=== PATIENT | male | born 1950 | race Two or more races ===

== ENCOUNTER 2021-12-27 15:11 | Inpatient (IN) | payer OTHER ==
[~2021-12-27] VITALS: Ht 160 cm; Wt 66.7 kg
[2021-12-27] MEDS ORDERED: ROSU10TA29 PO (17:02)
[2021-12-27] MEDS ORDERED: AMLO-213 PO (17:02)
[2021-12-27] MEDS ORDERED: ERGO500093 PO (17:02)
[2021-12-27 17:10] VITALS: BP 160/67
--- NOTE | 2021-12-27 17:10 | NUR ---
SAWMILL SUPERVISOR NOTES RECEIVED PT FROM [facility] [DIRECT ADMIT], DX SEPSIS PNEUMONIA, SPEAKS CROATIAN, AAO X 3, ON 4L O2 NASAL CANULA, NO SOB, RESPIRATION UNLABORED, ELEVATED TEMP 100.3, COOLING MEASURES IN PLACE, SR HR 75 ON MONITOR, DENIES CHEST PAIN/DISCOMFORT, IV ACCESS ON RIGHT FA 20G, FLUSHES WELL, SITE CLEAR, COMPLAIN OF 10/10 RUQ PAIN, WILL ADMINISTER PAIN MEDICATION, MAY HAVE ICE CHIPS FOR NOW, NO SKIN ISSUES, UNIT ORIENTATION DONE AND USE OF CALL LIGHT PROVIDED, BED LOW LOCKED, SR UP X 2, INSTRUCTED TO CALL FOR ASSISTANCE, WILL MONITOR. NOTIFIED DR. SHARLA FUNK FOR ADMIT ORDERS. WILL CARRY OUT
--- NOTE | 2021-12-27 17:42 | NUR ---
RN NOTES DR. MAGDALENO NOTIFIED OF DIRECT ADMIT FROM [facility], NEEDS ADMIT ORDERS. AND HE SAID OK
[2021-12-27] MEDS ORDERED: HYDROCODONE/APAP 10/325MG TABLET PO PRN (18:30)
[2021-12-27] MEDS ORDERED: MORPHINE SULFATE INJ 2 MG/ML DISP.SYRIN IV PRN (18:30)
[2021-12-27] MEDS ORDERED: HYDROCODONE/APAP 5/325MG TABLET PO PRN (18:30)
[2021-12-27] MEDS ORDERED: Z GUARD REMEDY 4 OZ OINT TP PRN (18:30)
[2021-12-27] MEDS ORDERED: ZOLPIDEM TARTRATE 5 MG TABLET PO PRN (18:30)
[2021-12-27] MEDS ORDERED: MAG HYDROX/AL HYDROX/SIMETH 30 ML UDC PO PRN (18:30)
[2021-12-27] MEDS ORDERED: ONDANSETRON HCL/PF 4 MG/2 ML VIAL IVP PRN (18:30)
[2021-12-27] MEDS ORDERED: MAGNESIUM HYDROXIDE 30 ML UDC PO PRN (18:30)
[2021-12-27] MEDS: IV 1/2NS 1000 ML 1,000 ML IV PRN (18:36)
--- NOTE | 2021-12-27 19:09 | NUR ---
RN NOTES ALL NEEDS MET AT THIS TIME. STABLE ENDORSED TO NEXT SHIFT FOR JEROD
[2021-12-27 19:14] LABS: CALCIUM, SERUM 7.9 mg/dL (8.5-10.1); POTASSIUM 3.9 mmol/L (3.5-5.1)
--- NOTE | 2021-12-27 19:15 | NUR ---
CLOSING NOTES ENDORSED TO EMELY PINEDA FOR JEROD. ALL NEEDS MET AT THIS TIME.
[2021-12-27] MEDS: CEFTRIAXONE 1 G in IV D5W 50 ML IV SCH (19:47)
[2021-12-27 19:52] LABS: BASOPHILS % (AUTO) 0.2 % (0.0-2.0); EOSINOPHILS % (AUTO) 0.3 % (0.0-6.0); HEMATOCRIT 35 % (39-51); HEMOGLOBIN 10.9 g/dL (13.5-17.5); LYMPHOCYTES # (AUTO) 1.1 K/uL (0.8-4.8); MEAN CORPUSCULAR HGB CONC 31 g/dl (31.0-36.0); MEAN CORPUSCULAR VOLUME 80 fL (80-96); MONOCYTES # (AUTO) 1.2 K/uL (0.1-1.30); MONOCYTES % (AUTO) 8.5 % (2.0-12.0); NEUTROPHILS # (AUTO) 11.4 K/uL (1.8-8.9); PLATELET COUNT (AUTO) 181 K/uL (150-450); RED BLOOD CELL COUNT(AUTO) 4.38 MIL/uL (4.5-6.0); WHITE BLOOD COUNT (AUTO) 13.7 K/uL (4.3-11.0)
[2021-12-27 20:00] VITALS: BP 164/76
[2021-12-27] MEDS: AZITHROMYCIN 500 MG in IV D5W 250 ML IV SCH (20:21)
[2021-12-27] MEDS: ENOXAPARIN SODIUM 30 MG/0.3 ML DISP.SYRIN SQ SCH (21:06)
[2021-12-27] MEDS: ACETAMINOPHEN 325 MG TABLET PO PRN (21:07)
--- NOTE | 2021-12-27 21:18 | NUR ---
MID LEVEL DEVELOPER NOTE PT IN RUNNING FEVER OF 101.2. CALL MD OWEN RECEIVED NEW ORDER OF BLOOD CX X2 STAT. LAB INFORMED. DRAWING BLOOD. AFTER THEM TYLENOL 650 MG PO GIVEN. ALSO BODY COOLING MEASURES APPLIED.
[2021-12-27] MEDS: ATORVASTATIN 10 MG TABLET PO SCH (21:20)
--- NOTE | 2021-12-27 22:18 | NUR ---
MILANESE KNITTING MACHINE OPERATOR NOTE FEVER SUBSIDE TO 99.7
[2021-12-28] VITALS (9 sets, daily range): BP systolic 104–164; BP diastolic 61–116
[2021-12-28] MEDS: ACETAMINOPHEN 325 MG TABLET PO PRN ×3 (03:44→18:11)
--- NOTE | 2021-12-28 03:45 | NUR ---
MOTOR HOTEL MANAGER NOTE PT IS RUNNING LOW GRADE FEVER 100.2, TYLENOL 650 MG PO GIVEN. CONTINUE TO MONITOR HIM.
--- NOTE | 2021-12-28 04:45 | NUR ---
MARKETING SALES MANAGER NOTE FEVER SUBSIDED TO 98.6.
--- NOTE | 2021-12-28 06:32 | NUR ---
DIRECTOR OF CAMPUS RECREATION NOTE PT IN BED AWAKE. NO DISTRESS OR DISCOMFORT NOTED. DENIES PAIN. ON TELE SR. ON IVF 1/ NS 75 ML/HR, NO S/S OF INFILTRATION NOTED. KEPT HIM DRY AND CLEAN. ALL NEEDS ATTENDED. WILL ENDORSE TO DAY SHIFT NURSE FOR CONTINUE TO CARE.
[2021-12-28 06:41] LABS: BASOPHILS % (AUTO) 0.1 % (0.0-2.0); EOSINOPHILS % (AUTO) 0.5 % (0.0-6.0); HEMATOCRIT 36 % (39-51); HEMOGLOBIN 11.2 g/dL (13.5-17.5); LYMPHOCYTES # (AUTO) 1.8 K/uL (0.8-4.8); LYMPHOCYTES % (AUTO) 12.2 % (20.0-44.0); MEAN CORPUSCULAR HGB CONC 32 g/dl (31.0-36.0); MEAN CORPUSCULAR VOLUME 80 fL (80-96); MONOCYTES # (AUTO) 1.4 K/uL (0.1-1.30); MONOCYTES % (AUTO) 9.6 % (2.0-12.0); NEUTROPHILS # (AUTO) 11.3 K/uL (1.8-8.9); NEUTROPHILS % (AUTO) 77.6 % (43.0-81.0); PLATELET COUNT (AUTO) 181 K/uL (150-450); RED BLOOD CELL COUNT(AUTO) 4.48 MIL/uL (4.5-6.0); WHITE BLOOD COUNT (AUTO) 14.5 K/uL (4.3-11.0)
[2021-12-28 06:57] LABS: CALCIUM, SERUM 7.9 mg/dL (8.5-10.1); CREATININE 0.9 mg/dL (0.6-1.3); MAGNESIUM 2.1 mg/dL (1.8-2.4); PHOSPHORUS 2.3 mg/dL (2.5-4.9); POTASSIUM 3.7 mmol/L (3.5-5.1)
[2021-12-28 07:10] LABS: THYROID STIMULATING HORMONE 0.551 uIU/mL (0.358-3.74)
--- NOTE | 2021-12-28 07:30 | NUR ---
PSYCHIATRIC SECRETARY AM NOTES RECEIVED PT IN BED, SPEAKS IRAQI, AAO X 3, ON 4L O2 NASAL CANULA, NO SOB, RESPIRATION UNLABORED, O2 AT 92%, PER GEAR STRAIGHTENER, WITH ELEVATED TEMP 100.3, COOLING MEASURES IN PLACE AND TYLENOL GIVEN, SR HR 77 ON MONITOR, DENIES CHEST PAIN/DISCOMFORT, IV ACCESS ON RIGHT FA 20G WITH 1/2 NS AT 75 ML INFUSING WELL, SITE CLEAR, CARDIAC DIET, NO SKIN ISSUES, CALL LIGHT WITHIN REACH, BED LOW LOCKED, SR UP X 2, INSTRUCTED TO CALL FOR ASSISTANCE, POC DISCUSSED, VERBALIZED UNDERSTANDINGS. WILL MONITOR.
[2021-12-28] MEDS: PANTOPRAZOLE 40 MG TABLET.DR PO SCH (07:54)
[2021-12-28] MEDS: AMLODIPINE BESYLATE 10 MG TABLET PO SCH (08:47)
[2021-12-28] MEDS: IV 1/2NS 1000 ML 1,000 ML IV PRN (08:49)
--- NOTE | 2021-12-28 09:30 | NUR ---
RN NOTES DUE MEDS GIVEN
[2021-12-28] MEDS ORDERED: K PHOS NEUTRAL 250 MG TABLET PO ONE (10:00)
--- NOTE | 2021-12-28 12:28 | NUR ---
RN NOTES PT C/O SOB, O2 SAT AT 85%, WHEEZING,PLACED ON NRM 15L - SATURATION WENT UP TO 97% BP 172/71, TEMP [address] LUJAN NEW ORDER FOR ABG AND BREATHING TREATMENT
[2021-12-28] MEDS: ALBUTEROL FS 2.5 MG/0.5 ML VIAL.NEB NEB PRN (12:48)
[2021-12-28] MEDS: hydrALAZINE HCL 10 MG TABLET PO PRN (12:48)
[2021-12-28] MEDS: IPRATROPIUM NEB FS 0.5 MG/2.5 ML AMPUL.NEB NEB PRN (12:48)
[2021-12-28] MEDS ORDERED: ALBUTEROL HALF STRENGTH 1.25 MG/3 ML VIAL.NEB NEB PRN (13:00)
[2021-12-28 13:04] LABS: ABG BASE EXCESS -1.9 mmol/L; ABG OXYGEN SATURATION 91.3 % (92.0-98.5); ABG PCO2 31.3 mmHg (35.0-45.0); ABG PH 7.449 (7.350-7.450); ABG PO2 58.9 mmHg (75.0-100.0); AaDO2 190.3 mmHg; COHb 0.8 % (0.5-1.5); MetHb 0.2 % (0.0-1.5); O2Hb 90.4 % (94.0-97.0); SITE, ABG Right Radial; VENT MODE, BG NASAL CANNULA
--- NOTE | 2021-12-28 13:10 | NUR ---
PT. IS AWAKE AND ALERT PLACED INTO SIMPLE MASK @ 10 LPM O2 FLOW DUE TO 93% SPO2 AND 59 PAO2 IN 5 L NASAL CANNULA. RN AWARE Addendum: 12/28/21 at 1311 by TOSHA STEEN RT Amended: Links added.
--- NOTE | 2021-12-28 13:38 | NUR ---
RN NOTES BP RE CHECKED 137/52. TEMP AT 100.2. DR. LUJAN AWARE.
--- NOTE | 2021-12-28 17:47 | NUR ---
RN NOTES PATIENT ON SIMPLE MASK 10L WITH O2 SAT 92% NOT IMPROVING PATIENT PLACED ON HIGH FLOW 80% O2 SAT 99%
--- NOTE | 2021-12-28 17:51 | NUR ---
pt. is awake and alert placed into high flow nasal cannula @ 50L flow / 80% fio2 due to 92% spo2 on 10 liter simple mask. charge nurse and notified. spo2 98 - 99% 5 minutes post changed Addendum: 12/28/21 at 1758 by TOSHA STEEN RT Amended: Links added.
[2021-12-28] MEDS: CEFTRIAXONE 1 G in IV D5W 50 ML IV SCH (18:11)
--- NOTE | 2021-12-28 18:23 | NUR ---
PT ARRIVED IN ICU ROOM 257 AT 1823. PT ALERT OX3 COOPERATIVE. HIGH FLOW NASAL CANNULA 50L 85%, NO SOB NOTED AT THIS TIME. PT STATES HE IS SOB WITH ACTIVITY. BEDSIDE REPORT RECEIVED FROM ALVARADO PINEDA.
--- NOTE | 2021-12-28 18:30 | NUR ---
RN NOTES DR. PORTILLO LUJAN AT BEDSIDE EARLIER, WITH PRDER TO TRANSFER TO ICU. PATIENT TRANSFERRED TO 257 WITH ALL HIS BELONGINGS, BEDSIDE REPORT GIVEN TO JACLYN PINEDA
--- NOTE | 2021-12-28 19:20 | NUR ---
RN NOTES PT FOUND SEMI FOWLERS DISPLAYING NO S/S OF DISTRESS, PT ENDORSES NO PAIN AND IS BREATHING EVEN AND UNLABORED ON HIGH FLOW NASAL CANNULA 50L 85%. PT DENIES SOB. R AC 20G IS PATIENT AND INTACT. SBAR AND REPORT GIVEN TO WINCH DERRICK OPERATOR RN, ALL QUESTIONS ANSWERED. SAFETY MEASURES IN PLACE, BED LOCKED AND IN LOWEST POSITION, SIDE RAILS UPX2, CALL LIGHT WITHIN REACH, PT INSTRUCTED TO CALL FOR ASSISTANCE. PT ENDORSED IN STABLE CONDITION FOR JEROD.
[2021-12-28] MEDS: AZITHROMYCIN 500 MG in IV D5W 250 ML IV SCH (20:00)
[2021-12-28] MEDS: ATORVASTATIN 10 MG TABLET PO SCH (21:44)
[2021-12-28] MEDS: ENOXAPARIN SODIUM 30 MG/0.3 ML DISP.SYRIN SQ SCH (21:45)
[2021-12-29] VITALS (25 sets, daily range): BP systolic 124–168; BP diastolic 41–137
[2021-12-29 04:04] LABS: BASOPHILS % (AUTO) 0.2 % (0.0-2.0); EOSINOPHILS % (AUTO) 0.1 % (0.0-6.0); HEMATOCRIT 37 % (39-51); HEMOGLOBIN 11.8 g/dL (13.5-17.5); LYMPHOCYTES # (AUTO) 1.2 K/uL (0.8-4.8); LYMPHOCYTES % (AUTO) 5.6 % (20.0-44.0); MEAN CORPUSCULAR HGB CONC 32 g/dl (31.0-36.0); MEAN CORPUSCULAR VOLUME 79 fL (80-96); MONOCYTES # (AUTO) 1.7 K/uL (0.1-1.30); MONOCYTES % (AUTO) 7.8 % (2.0-12.0); NEUTROPHILS # (AUTO) 18.4 K/uL (1.8-8.9); NEUTROPHILS % (AUTO) 86.3 % (43.0-81.0); PLATELET COUNT (AUTO) 206 K/uL (150-450); RED BLOOD CELL COUNT(AUTO) 4.71 MIL/uL (4.5-6.0); WHITE BLOOD COUNT (AUTO) 21.3 K/uL (4.3-11.0)
[2021-12-29 04:10] LABS: CALCIUM, SERUM 8.5 mg/dL (8.5-10.1); CREATININE 0.9 mg/dL (0.6-1.3); POTASSIUM 3.9 mmol/L (3.5-5.1)
--- NOTE | 2021-12-29 05:38 | NUR ---
end of shift resp note pt found at about 2000 restless and pulling on hfnc, complaining that it was to strong in his nose. pt remains on high flow nasal canula 40l 95% fio2. settings adjusted at start of shift for pt comfort hr spo2 and rr stable at this time. Addendum: 12/29/21 at 0540 by PEPE LANIER RT Amended: Links added.
[2021-12-29] MEDS: PANTOPRAZOLE 40 MG TABLET.DR PO SCH (07:21)
--- NOTE | 2021-12-29 07:37 | NUR ---
RN OPENING NOTES RECEIVED PT IN BED A/O X 3-4, WELSH SPEAKING, ON HI FLOW O2 AT 40 FIO2 95%. TELE MONITOR SHOWS SR. IV ACCESS NOTED AT R AC 18G. RUNNING NS @ TKO. ALL SAFETY MEASURES IN PLACE, BED IN LOWEST LOCKED POSITION,SR UP X 3, CALL LIGHT WITHIN REACH. WILL CONT. TO MONITOR THROUGHOUT SHIFT.
[2021-12-29] MEDS: AMLODIPINE BESYLATE 10 MG TABLET PO SCH (08:35)
[2021-12-29] MEDS ORDERED: VANCOMYCIN HCL 0.75 GM in IV D5W 250 ML IV ONE (14:00)
[2021-12-29] MEDS ORDERED: VANCOMYCIN 1 GM in IV D5W 250ml IV ONE (14:00)
--- NOTE | 2021-12-29 18:54 | NUR ---
RN CLOSING NOTE PT IS RESTING IN BED A/O X 3, ALPHONSO AND GEORGIAN SPEAKING. PT ON HIGH FLOW AT 40 AND FIO2 AT 60%. SATING AT 91%. IV ACCESS NOTED AT R AC 18G. RUNNING NS TKO. ALL SAFETY MEASURES IN PLACE, WILL ENDORSE TO OFFICE MOVER RN FOR JEROD.
[2021-12-29] MEDS: IPRATROPIUM NEB FS 0.5 MG/2.5 ML AMPUL.NEB NEB PRN (19:38)
[2021-12-29] MEDS: ALBUTEROL FS 2.5 MG/0.5 ML VIAL.NEB NEB PRN (19:38)
--- NOTE | 2021-12-29 21:05 | NUR ---
BATTERY STARTER. RECEIVED THE PT REST IN BED. PT IS TACHYPNIC AND WHEEZING.BREATHING TREATMENT GIVEN. CHEST CT DONE. WAITING FOR RESULT. OXYGEN 60L HIGH FLOW 55%. SAT 92%, WILL CONTINUE TO MONITOR VITALS.
--- NOTE | 2021-12-29 21:18 | NUR ---
PT ON HFNC 60L 55% NO RESP DISTRESS. PT TOLERATING SETTINGS. CONTINUE TO MONITOR.
[2021-12-29] MEDS: ATORVASTATIN 10 MG TABLET PO SCH (21:53)
[2021-12-29] MEDS: MEROPENEM 1 G in IV NS 0.9% 100 ML IV SCH (21:53)
[2021-12-29] MEDS: AZITHROMYCIN 500 MG in IV D5W 250 ML IV SCH (21:53)
[2021-12-29] MEDS: VANCOMYCIN 1 GM in IV D5W 250ml IV SCH (21:53)
[2021-12-29] MEDS: ENOXAPARIN SODIUM 30 MG/0.3 ML DISP.SYRIN SQ SCH (21:55)
[2021-12-30] VITALS (30 sets, daily range): BP systolic 120–175; BP diastolic 52–93
[2021-12-30 04:18] LABS: BASOPHILS # (AUTO) 0.1 K/uL (0.0-0.2); BASOPHILS % (AUTO) 0.3 % (0.0-2.0); EOSINOPHILS % (AUTO) 0.3 % (0.0-6.0); HEMATOCRIT 35 % (39-51); HEMOGLOBIN 10.9 g/dL (13.5-17.5); LYMPHOCYTES # (AUTO) 2.2 K/uL (0.8-4.8); LYMPHOCYTES % (AUTO) 11.6 % (20.0-44.0); MEAN CORPUSCULAR HGB CONC 31 g/dl (31.0-36.0); MEAN CORPUSCULAR VOLUME 78 fL (80-96); MONOCYTES # (AUTO) 1.9 K/uL (0.1-1.30); MONOCYTES % (AUTO) 10.2 % (2.0-12.0); NEUTROPHILS # (AUTO) 14.5 K/uL (1.8-8.9); NEUTROPHILS % (AUTO) 77.6 % (43.0-81.0); PLATELET COUNT (AUTO) 225 K/uL (150-450); RED BLOOD CELL COUNT(AUTO) 4.41 MIL/uL (4.5-6.0); WHITE BLOOD COUNT (AUTO) 18.7 K/uL (4.3-11.0)
[2021-12-30 04:22] LABS: CALCIUM, SERUM 8.1 mg/dL (8.5-10.1); POTASSIUM 3.4 mmol/L (3.5-5.1)
--- NOTE | 2021-12-30 05:21 | NUR ---
agriculture mechanic. am care given. remaining same oxygen on. hob elevated. iv rt hand 20g. tko running. hob elevated, will continue to monitor vitals.
[2021-12-30] MEDS: ACETAMINOPHEN 325 MG TABLET PO PRN ×2 (06:06→16:43)
[2021-12-30] MEDS: MEROPENEM 1 G in IV NS 0.9% 100 ML IV SCH ×3 (06:06→21:51)
[2021-12-30] MEDS ORDERED: POTASSIUM CHLORIDE 20 MEQ TAB.PRT.SR PO ONE (08:00)
--- NOTE | 2021-12-30 08:00 | NUR ---
RN NOTE PATIENT RECEIVED IN BED, AWAKE, A&OX4. PATIENT ON HFNC WITH 60L 60% FIO2 O2 SAT 92% ON BEDSIDE MONITOR. RIGHT AC 18G ANF LEFT HAND 20G SL IN PLACE. BED LOCKED AND IN LOWEST POSITION, CALL LIGHT WITHIN REACH, 2 SIDE RAILS UP.
[2021-12-30] MEDS: PANTOPRAZOLE 40 MG TABLET.DR PO SCH (08:25)
[2021-12-30] MEDS: AMLODIPINE BESYLATE 10 MG TABLET PO SCH (08:25)
[2021-12-30] MEDS: VANCOMYCIN 1 GM in IV D5W 250ml IV SCH ×2 (08:26→20:22)
[2021-12-30 08:49] LABS: ALBUMIN 2.4 g/dL (3.4-5.0); BILIRUBIN,DIRECT 0.4 mg/dL (0.0-0.2); TOTAL PROTEIN, SERUM 7.4 g/dL (6.4-8.2)
[2021-12-30] MEDS: FLUCONAZOLE IN NS,PREMIX 400 MG in PREMIX 1 EA IV SCH ×2 (11:25)
--- NOTE | 2021-12-30 12:30 | NUR ---
RN NOTE HFNC INCREASED TO 80% FIO2, 60L BY RT.
[2021-12-30] MEDS: FLUCONAZOLE IN NS,PREMIX 200 MG in PREMIX 1 EA IV SCH ×2 (13:22)
[2021-12-30] MEDS: hydrALAZINE HCL 10 MG TABLET PO PRN (13:22)
--- NOTE | 2021-12-30 13:35 | NUR ---
RN NOTE BP 169/76. HYDRALAZINE 10MG PRN GIVEN.
--- NOTE | 2021-12-30 15:13 | NUR ---
RN NOTE BP REMAINS ELEVATED. PAIGE LUJAN NOTIFIED.
[2021-12-30 15:50] LABS: BILIRUBIN,URINE NEGATIVE (NEGATIVE); COLOR,URINE YELLOW (YELLOW); LEUKOCYTE ESTERASE ,URINE NEGATIVE (NEGATIVE); NITRITE, URINE NEGATIVE (NEGATIVE); PROTEIN,URINE 30 mg/dl (NEGATIVE); UGLUCOSE 250 MG/DL mg/dL (NEGATIVE)
[2021-12-30 15:59] LABS: RBC,URINE 0-2 /HPF (0-2); WBC,URINE NONE SEEN /HPF (0-3)
[2021-12-30 16:00] LABS: BACTERIA,URINE Few /HPF (None Seen); SQUAMOUS EPITHELIAL CELL,UR None Seen /HPF (None Seen)
[2021-12-30] MEDS: LISINOPRIL (20MG) 20 MG TABLET PO SCH (16:19)
--- NOTE | 2021-12-30 16:43 | NUR ---
rn notes T-100.7F, ADMINISTERED TYLENOL 750MG PO PRN, AND COOLING MEASURE. BP 174/77, P-106 ADMINISTERED LICINOPRIL PER HOSPITALIST ORDER,
--- NOTE | 2021-12-30 18:43 | NUR ---
RN CLOSING NOTE PATIENT REMAINS IN BED, AWAKE, A&OX4. PATIENT ON HFNC WITH 60L 80% FIO2 O2 SAT 95% ON BEDSIDE MONITOR. RIGHT AC 18G AND LEFT HAND 20G SL IN PLACE. ALL NEEDS ATTENDED DURING SHIFT. BP 133/63 AT THIS TIME. ALL NEEDS ATTENDED DURING SHIFT. BED LOCKED AND IN LOWEST POSITION, CALL LIGHT WITHIN REACH, 2 SIDE RAILS UP. WILL ENDORSE TO GROCERY STORE BAGGER NURSE FOR JEROD.
--- NOTE | 2021-12-30 19:15 | NUR ---
RN OPENING NOTES RECEIVED PATIENT ON BED AWAKE, A/O X 4, ON HI-FLOW @ 60L AND FIO2-80% SATING AT 94%. RESPIRATORY EVEN AND UNLABORED NO SOB NOTED, REMAIN AFEBRILE. DENIES PAIN, NO S/S OF DISTRESS NOTED. PATIENT HAS RAC # 18, FLUSHED WITH NS, NO S/S OF INFILTRATION NOTED AT SITE. SAFETY MEASURE PROVIDED. BED IN LOWEST POSITION, LOCKED. CONTINUE TO MONITOR.
[2021-12-30] MEDS: AZITHROMYCIN 500 MG in IV D5W 250 ML IV SCH (20:22)
[2021-12-30] MEDS: ATORVASTATIN 10 MG TABLET PO SCH (21:52)
[2021-12-31] VITALS (26 sets, daily range): BP systolic 128–178; BP diastolic 61–90
[2021-12-31] MEDS: hydrALAZINE HCL 10 MG TABLET PO PRN (00:27)
--- NOTE | 2021-12-31 00:30 | NUR ---
RN NOTES PATIENT NOTED WITH BP 177/79 PULSE- 91, HYDRALAZINE 10MG PO GIVEN PER MD'S ORDERED. DENIES HEADACHE AND DIZINNESS. CONTINUE TO MONITOR
[2021-12-31 04:20] LABS: BASOPHILS % (AUTO) 0.1 % (0.0-2.0); EOSINOPHILS % (AUTO) 0.3 % (0.0-6.0); HEMATOCRIT 34 % (39-51); HEMOGLOBIN 10.7 g/dL (13.5-17.5); LYMPHOCYTES # (AUTO) 1.1 K/uL (0.8-4.8); LYMPHOCYTES % (AUTO) 5.3 % (20.0-44.0); MEAN CORPUSCULAR HGB CONC 32 g/dl (31.0-36.0); MEAN CORPUSCULAR VOLUME 78 fL (80-96); MONOCYTES # (AUTO) 1.4 K/uL (0.1-1.30); MONOCYTES % (AUTO) 7.2 % (2.0-12.0); NEUTROPHILS # (AUTO) 17.3 K/uL (1.8-8.9); NEUTROPHILS % (AUTO) 87.1 % (43.0-81.0); PLATELET COUNT (AUTO) 265 K/uL (150-450); RED BLOOD CELL COUNT(AUTO) 4.31 MIL/uL (4.5-6.0); WHITE BLOOD COUNT (AUTO) 19.8 K/uL (4.3-11.0)
[2021-12-31] MEDS: ACETAMINOPHEN 325 MG TABLET PO PRN ×2 (04:25→15:15)
--- NOTE | 2021-12-31 04:25 | NUR ---
RN NOTES PATIENT NOTED WITH TEMP- 100.7 F DEGREES, COOLING MEASURE PROVIDED, ACETAMINOPHEN 650MG GIVEN PER MD'S ORDERED. CONTINUE TO MONITOR.
[2021-12-31 04:27] LABS: CALCIUM, SERUM 8.3 mg/dL (8.5-10.1); CREATININE 0.9 mg/dL (0.6-1.3); POTASSIUM 3.9 mmol/L (3.5-5.1)
[2021-12-31] MEDS: MEROPENEM 1 G in IV NS 0.9% 100 ML IV SCH ×3 (04:51→21:30)
--- NOTE | 2021-12-31 07:18 | NUR ---
RN NOTES PATIENT REMAIN STABLE THROUGH OUT THE SHIFT. RESPIRATORY EVEN AND UNLABORED NO SOB NOTED, REMAIN AFEBRILE. DENIES PAIN, NO S/S OF DISTRESS NOTED. PATIENT HAS RAC # 18 AND RIGHT HAND #20, FLUSHED WITH NS, NO S/S OF INFILTRATION NOTED AT SITE. ALL DUE MEDS GIVEN ORDERED. SAFETY MEASURE PROVIDED. BED IN LOWEST POSITION, LOCKED. REPORT GIVEN TO MORNING SHIFT NURSE.
--- NOTE | 2021-12-31 07:40 | NUR ---
ICU/RN PT IS RESTING IN THE BED. HAS SOB ,ON HI -FLOW O2 FIO2-60%,SAT O2-90%.AFEBRILE, NO PAIN REPORTED AT THIS TIME.PT IS AWAKE,ALERT.USE URINAL. LABS REVIEW.MD AWARE.CONTINUE MONITORING
--- NOTE | 2021-12-31 09:00 | NUR ---
ICU/RN DUE MEDS ARE GIVEN ORDERED.
[2021-12-31] MEDS: LISINOPRIL (20MG) 20 MG TABLET PO SCH (09:46)
[2021-12-31] MEDS: VANCOMYCIN 1 GM in IV D5W 250ml IV SCH ×2 (09:47→20:30)
[2021-12-31] MEDS: PANTOPRAZOLE 40 MG TABLET.DR PO SCH (09:47)
[2021-12-31] MEDS: AMLODIPINE BESYLATE 10 MG TABLET PO SCH (09:47)
[2021-12-31] MEDS: FLUCONAZOLE IN NS,PREMIX 200 MG in PREMIX 1 EA IV SCH ×2 (11:53)
[2021-12-31] MEDS: FLUCONAZOLE IN NS,PREMIX 400 MG in PREMIX 1 EA IV SCH ×2 (11:53)
--- NOTE | 2021-12-31 14:10 | NUR ---
ICU/RN THORACENTESIS DONE .310 ML REMOVED .CHEST X-RAY ORDERED.
--- NOTE | 2021-12-31 15:15 | NUR ---
ICU/RN T-101.6 TYLENOL PO GIVEN.
[2021-12-31] MEDS: GUAIFENESIN/CODEINE 10 ML UDC PO PRN ×2 (16:14→22:18)
--- NOTE | 2021-12-31 16:27 | NUR ---
ICU/RN PT IS COUGHING .ROBITUSSIN PO GIVEN ORDERED.T -99.3.PM CARE PROVIDED.CONTINUE MONITORING.
[2021-12-31] MEDS: AZITHROMYCIN 500 MG in IV D5W 250 ML IV SCH (19:30)
[2021-12-31] MEDS: ATORVASTATIN 10 MG TABLET PO SCH (22:18)
[2022-01-01] VITALS (27 sets, daily range): BP systolic 123–162; BP diastolic 49–82
[2022-01-01 04:34] LABS: BASOPHILS # (AUTO) 0.1 K/uL (0.0-0.2); BASOPHILS % (AUTO) 0.3 % (0.0-2.0); EOSINOPHILS % (AUTO) 0.9 % (0.0-6.0); HEMATOCRIT 31 % (39-51); HEMOGLOBIN 9.8 g/dL (13.5-17.5); LYMPHOCYTES # (AUTO) 1.1 K/uL (0.8-4.8); LYMPHOCYTES % (AUTO) 6.4 % (20.0-44.0); MEAN CORPUSCULAR HGB CONC 32 g/dl (31.0-36.0); MEAN CORPUSCULAR VOLUME 77 fL (80-96); MONOCYTES # (AUTO) 1.2 K/uL (0.1-1.30); MONOCYTES % (AUTO) 6.9 % (2.0-12.0); NEUTROPHILS # (AUTO) 14.9 K/uL (1.8-8.9); NEUTROPHILS % (AUTO) 85.5 % (43.0-81.0); PLATELET COUNT (AUTO) 262 K/uL (150-450); RED BLOOD CELL COUNT(AUTO) 3.95 MIL/uL (4.5-6.0); WHITE BLOOD COUNT (AUTO) 17.5 K/uL (4.3-11.0)
[2022-01-01 04:49] LABS: CALCIUM, SERUM 7.8 mg/dL (8.5-10.1); CREATININE 0.9 mg/dL (0.6-1.3); POTASSIUM 3.7 mmol/L (3.5-5.1)
[2022-01-01] MEDS: MEROPENEM 1 G in IV NS 0.9% 100 ML IV SCH ×3 (05:00→20:06)
[2022-01-01] MEDS: VANCOMYCIN 1 GM in IV D5W 250ml IV SCH ×3 (05:40→21:00)
--- NOTE | 2022-01-01 07:40 | NUR ---
ICU/RN PT IS RESTING ON THE BED HAS SOB ON HI-FLOW O2.80%-60L.SAT O2-02-95%.HAS PRODUCTIVE COUGH.AFEBRILE.NO PAIN REPORTED AT THIS TIME.LABS REVIEW.MD AWARE.CONTINUE MONITORING.
[2022-01-01] MEDS: PANTOPRAZOLE 40 MG TABLET.DR PO SCH (08:27)
[2022-01-01] MEDS: AMLODIPINE BESYLATE 10 MG TABLET PO SCH (08:30)
[2022-01-01] MEDS: LISINOPRIL (20MG) 20 MG TABLET PO SCH (08:31)
[2022-01-01] MEDS: FLUCONAZOLE IN NS,PREMIX 400 MG in PREMIX 1 EA IV SCH ×2 (10:21)
[2022-01-01] MEDS: GUAIFENESIN/CODEINE 10 ML UDC PO PRN ×2 (10:36→21:02)
[2022-01-01] MEDS: ENOXAPARIN SODIUM 40 MG/0.4 ML DISP.SYRIN SQ SCH (10:45)
[2022-01-01] MEDS: ACETAMINOPHEN 325 MG TABLET PO PRN ×2 (10:51→17:42)
--- NOTE | 2022-01-01 10:55 | NUR ---
ICU/RN PT HAS T-100.3 AND COUGH.TYLENOL 650 MG AND ROBITUSSIN PO GIVEN ORDERED.CONTINUE MONITORING.
[2022-01-01] MEDS: FLUCONAZOLE IN NS,PREMIX 200 MG in PREMIX 1 EA IV SCH ×2 (12:57)
--- NOTE | 2022-01-01 17:53 | NUR ---
ICU/RN PT HAS T-101.9 .TYLENOL PO GIVEN ORDERED .COOLING BATH PROVIDED.PT EATS 100% FROM HIS DINNER TRAY.CONTINUE MONITORING.
[2022-01-01] MEDS: ATORVASTATIN 10 MG TABLET PO SCH (21:02)
[2022-01-02] VITALS (29 sets, daily range): BP systolic 104–168; BP diastolic 41–90
[2022-01-02] MEDS: ACETAMINOPHEN 325 MG TABLET PO PRN (00:29)
[2022-01-02] MEDS: MEROPENEM 1 G in IV NS 0.9% 100 ML IV SCH ×3 (04:10→20:00)
[2022-01-02 04:51] LABS: BASOPHILS % (AUTO) 0.2 % (0.0-2.0); EOSINOPHILS % (AUTO) 2.1 % (0.0-6.0); HEMATOCRIT 32 % (39-51); HEMOGLOBIN 10.1 g/dL (13.5-17.5); LYMPHOCYTES # (AUTO) 2.6 K/uL (0.8-4.8); LYMPHOCYTES % (AUTO) 14.9 % (20.0-44.0); MEAN CORPUSCULAR HGB CONC 32 g/dl (31.0-36.0); MEAN CORPUSCULAR VOLUME 78 fL (80-96); MONOCYTES % (AUTO) 5.7 % (2.0-12.0); NEUTROPHILS # (AUTO) 13.6 K/uL (1.8-8.9); NEUTROPHILS % (AUTO) 77.1 % (43.0-81.0); PLATELET COUNT (AUTO) 306 K/uL (150-450); RED BLOOD CELL COUNT(AUTO) 4.08 MIL/uL (4.5-6.0); WHITE BLOOD COUNT (AUTO) 17.7 K/uL (4.3-11.0)
[2022-01-02] MEDS: VANCOMYCIN 1 GM in IV D5W 250ml IV SCH ×2 (05:01→13:09)
[2022-01-02 05:23] LABS: CALCIUM, SERUM 8.3 mg/dL (8.5-10.1); CREATININE 0.9 mg/dL (0.6-1.3); POTASSIUM 3.7 mmol/L (3.5-5.1)
--- NOTE | 2022-01-02 08:06 | NUR ---
RN OPENING NOTE PT WAS RECEIVED A/O X4 ON HIGH FLOW NASAL CANULA AT 60L AND 80% FIO2 SATING CURRENTLY AT 97 % WITH A RESPIRATORY RATE OF 20. LEFT UA MID LINE ON TKO. PATIENT RECEIVED BREAKFAST. THE BED IS LOCKED IN LOWEST POSITION CALL LIGHT WITHIN REACH 2X SIDE RAILS UP .
[2022-01-02] MEDS: PANTOPRAZOLE 40 MG TABLET.DR PO SCH (08:16)
[2022-01-02] MEDS: AMLODIPINE BESYLATE 10 MG TABLET PO SCH (08:16)
[2022-01-02] MEDS: LISINOPRIL (20MG) 20 MG TABLET PO SCH (08:17)
[2022-01-02] MEDS: ENOXAPARIN SODIUM 40 MG/0.4 ML DISP.SYRIN SQ SCH (08:17)
[2022-01-02] MEDS: FLUCONAZOLE IN NS,PREMIX 400 MG in PREMIX 1 EA IV SCH ×2 (11:12)
[2022-01-02] MEDS ORDERED: AMOXICILLIN TRIHYDRATE 250 MG CAPSULE PO SCH (13:00)
[2022-01-02] MEDS: hydrALAZINE HCL 10 MG TABLET PO PRN (13:09)
[2022-01-02] MEDS: FLUCONAZOLE IN NS,PREMIX 200 MG in PREMIX 1 EA IV SCH ×2 (14:24)
[2022-01-02] MEDS: VANCOMYCIN 1.25 GM in IV D5W 250 ML IV SCH (21:00)
[2022-01-02] MEDS: ATORVASTATIN 10 MG TABLET PO SCH (21:15)
[2022-01-03] VITALS (25 sets, daily range): BP systolic 127–160; BP diastolic 47–97
[2022-01-03] MEDS: ACETAMINOPHEN 325 MG TABLET PO PRN ×2 (00:07→14:13)
[2022-01-03] MEDS: MEROPENEM 1 G in IV NS 0.9% 100 ML IV SCH ×3 (04:30→21:16)
[2022-01-03 04:59] LABS: BASOPHILS # (AUTO) 0.1 K/uL (0.0-0.2); BASOPHILS % (AUTO) 0.5 % (0.0-2.0); HEMATOCRIT 30 % (39-51); HEMOGLOBIN 9.6 g/dL (13.5-17.5); LYMPHOCYTES # (AUTO) 1.8 K/uL (0.8-4.8); LYMPHOCYTES % (AUTO) 11.5 % (20.0-44.0); MEAN CORPUSCULAR HGB CONC 32 g/dl (31.0-36.0); MEAN CORPUSCULAR VOLUME 77 fL (80-96); MONOCYTES # (AUTO) 1.1 K/uL (0.1-1.30); NEUTROPHILS # (AUTO) 12.3 K/uL (1.8-8.9); PLATELET COUNT (AUTO) 309 K/uL (150-450); RED BLOOD CELL COUNT(AUTO) 3.87 MIL/uL (4.5-6.0); WHITE BLOOD COUNT (AUTO) 15.6 K/uL (4.3-11.0)
[2022-01-03] MEDS: VANCOMYCIN 1.25 GM in IV D5W 250 ML IV SCH (05:02)
[2022-01-03 05:11] LABS: CREATININE 0.9 mg/dL (0.6-1.3); POTASSIUM 3.8 mmol/L (3.5-5.1)
--- NOTE | 2022-01-03 07:30 | NUR ---
RN OPENING NOTE PT OBSERVED IN BED WITH HOB >30 DEGREES. PT IS ON HIGH FLOW NC WITH ALL PRESCRIBED SETTINGS TOLERATING WELL WITH NO SIGNS OF LABORED BREATHING OR DISTRESS SAT 96%. PT IS A/OX4. IV ACCESS L UA MIDLINE INFUSING WITH TKO. BED IS LOCKED IN LOWEST POSITION X2 BED RAILS UP AND ALL HOSPITAL SAFETY PROTOCOLS ARE IN PLACE. WILL CONTINUE TO MONITOR THIS SHIFT.
[2022-01-03] MEDS: PANTOPRAZOLE 40 MG TABLET.DR PO SCH (07:49)
[2022-01-03] MEDS: ENOXAPARIN SODIUM 40 MG/0.4 ML DISP.SYRIN SQ SCH (08:25)
[2022-01-03] MEDS: AMLODIPINE BESYLATE 10 MG TABLET PO SCH (08:25)
[2022-01-03] MEDS: LISINOPRIL (20MG) 20 MG TABLET PO SCH (08:25)
[2022-01-03] MEDS: FLUCONAZOLE IN NS,PREMIX 400 MG in PREMIX 1 EA IV SCH ×2 (10:35)
[2022-01-03] MEDS: FLUCONAZOLE IN NS,PREMIX 200 MG in PREMIX 1 EA IV SCH ×2 (14:00)
[2022-01-03] MEDS: AZITHROMYCIN 500 MG in IV D5W 250 ML IV SCH (16:01)
--- NOTE | 2022-01-03 18:50 | NUR ---
RN CLOSING NOTE PT OBSERVED IN BED WITH HOB >30 DEGREES. PT IS ON HIGH FLOW NC WITH ALL PRESCRIBED SETTINGS TOLERATING WELL WITH NO SIGNS OF LABORED BREATHING OR DISTRESS SAT 97%. PT IS A/OX4. IV ACCESS L UA MIDLINE INFUSING WITH TKO. BED IS LOCKED IN LOWEST POSITION X2 BED RAILS UP AND ALL HOSPITAL SAFETY PROTOCOLS ARE IN PLACE. WILL ENDORSE TO COMMERCIAL LOAN MANAGER FOR JEROD.
[2022-01-03] MEDS: ATORVASTATIN 10 MG TABLET PO SCH (21:17)
[2022-01-04] VITALS (31 sets, daily range): BP systolic 109–163; BP diastolic 60–104
[2022-01-04] MEDS: MEROPENEM 1 G in IV NS 0.9% 100 ML IV SCH ×2 (04:11→12:30)
--- NOTE | 2022-01-04 05:00 | NUR ---
end of shift resp note pt remains on high flow nasal canula 60l 70% hr and rr stable at this time. Addendum: 01/04/22 at 0623 by PEPE LANIER RT Amended: Links added.
--- NOTE | 2022-01-04 06:51 | NUR ---
ICU/RN: PT DISLODGED HIS MIDLINE. GARAGEMAN MADE AWARE TO NOTIFY MIDLINE TEAM. WILL ENDORSE TO AM SHIFT.
--- NOTE | 2022-01-04 07:10 | NUR ---
CATERING TRUCK DRIVER Bedside report taken from [facility] nurse Colby PINEDA. pt asleep, easily arousable, AAO x4, follows commands, moves bue and ble 5/5 ambulatory to bedside commode. PERRLA. pt on hi flow n/c tolerating well. spo2 95%. baldev lung sounds coarse and diminished. pt nsr on monitor. all pulses present and palpable. bowel sounds present, abdomen distended and rounded but soft. pt on cardiac diet. skin intact. no pressure wounds noted. vitals stable. safety measures in place. Pt has no IV access at this time, pt pulled out midline per noc nurse. Nursing bar supervisor aware that pt has no IV access, picc nurse contacted awaiting midline placement. Charge nurse Crispin PINEDA aware.
--- NOTE | 2022-01-04 08:05 | NUR ---
SENIOR RESEARCH CONSULTANT Pt sitting up in bed, feeding self breakfast tray. pt tolerating well. no visible signs of aspiration noted. vitals stable. will continue to monitor.
[2022-01-04] MEDS: AMLODIPINE BESYLATE 10 MG TABLET PO SCH (08:35)
[2022-01-04] MEDS: PANTOPRAZOLE 40 MG TABLET.DR PO SCH (08:35)
[2022-01-04] MEDS: LISINOPRIL (20MG) 20 MG TABLET PO SCH (08:36)
[2022-01-04] MEDS: ENOXAPARIN SODIUM 40 MG/0.4 ML DISP.SYRIN SQ SCH (08:37)
[2022-01-04 09:15] LABS: *ANA ANTI-CENTROMERE B AB <0.2 AI (0.0-0.9); *ANA ANTI-DNA(DS) AB, QN 4 IU/mL (0-9); *ANA ANTI-JO-1 <0.2 AI (0.0-0.9); *ANA ANTICHROMATIN ANTIBODY <0.2 AI (0.0-0.9); *ANA RNP ANTIBODIES <0.2 AI (0.0-0.9); *ANA SJOGREN'S ANTI-SS-A <0.2 AI (0.0-0.9); *ANA SJOGREN'S ANTI-SS-B <0.2 AI (0.0-0.9); *ANAANTI-SCLERODERMA-70 AB 0.2 AI (0.0-0.9); *ANASMITH AB <0.2 AI (0.0-0.9)
--- NOTE | 2022-01-04 11:09 | NUR ---
STAPLING MACHINE OPERATOR Nursing nitroglycerin supervisor messaged and called about midline placement. pt has no iv access at this time. awaiting line placement. charge nurse Crispin PINEDA aware.
--- NOTE | 2022-01-04 11:50 | NUR ---
CHILDCARE ATTENDANT pt sitting up in bed feeding self lunch tray. pt tolerating well. no visible signs of aspiration noted. will continue to monitor.
--- NOTE | 2022-01-04 12:14 | NUR ---
WALKING DRAGLINE OILER PICC nurse at bedside placing midline, pt awake, alert and cooperative. vitals stable. will continue to monitor.
[2022-01-04] MEDS: AZITHROMYCIN 500 MG in IV D5W 250 ML IV SCH (12:23)
[2022-01-04] MEDS: FLUCONAZOLE IN NS,PREMIX 400 MG in PREMIX 1 EA IV SCH ×2 (13:12)
[2022-01-04] MEDS: CEFTRIAXONE 2 G in IV D5W 100 ML IV SCH (15:20)
[2022-01-04] MEDS: FLUCONAZOLE IN NS,PREMIX 200 MG in PREMIX 1 EA IV SCH ×2 (15:22)
--- NOTE | 2022-01-04 16:15 | NUR ---
REFRIGERATION SUPERVISOR Pt bathed and cleaned. linen change done. skin check done, no wounds noted, skin intact. pt turns and repositions self in bed. pt tolerated well. all lines traced. all drips verified. safety measures in place. will continue to monitor.
--- NOTE | 2022-01-04 19:00 | NUR ---
REDEVELOPMENT MANAGER Bedside report given to [facility] nurse Reyes RN. pt asleep easily arousable. all lines traced. pt clean and dry. safety measures in place. no signs of acute distress at this time.
--- NOTE | 2022-01-04 20:00 | NUR ---
RN NOTE RECEIVED PT SLEEPING, AROUSES EASILY TO VERBAL TACTILE. AOX4. ON O2 HIGH FLOW NC 60L 70%. O2 SAT AT 98%. DENIES ANY SOB OR PAIN. SR ON TELE MONITOR. CINDY ML IN PLACE, PATENT AND INTACT. OFFERED DINNER TRAY AT BEDSIDE, TOLERATED WELL. PT CONTINENT, USING URINAL WITH CLEAR DARK YELLOW URINE OUTPUT. WILL CONTINUE TO MONITOR.
--- NOTE | 2022-01-04 20:35 | NUR ---
RN NOTE ASSISTED PT TO BEDSIDE COMMODE. HAD 1 LARGE BM.
--- NOTE | 2022-01-04 21:00 | NUR ---
RN NOTE RT TITRATED HFNC SETTING TO 60% FIO2, PT TOLERATING. WILL CONTINUE TO MONITOR.
[2022-01-04] MEDS: ATORVASTATIN 10 MG TABLET PO SCH (21:45)
[2022-01-05] VITALS (25 sets, daily range): BP systolic 119–154; BP diastolic 58–75
[2022-01-05 04:24] LABS: BASOPHILS % (AUTO) 0.2 % (0.0-2.0); EOSINOPHILS % (AUTO) 1.9 % (0.0-6.0); HEMATOCRIT 30 % (39-51); HEMOGLOBIN 9.2 g/dL (13.5-17.5); LYMPHOCYTES # (AUTO) 1.5 K/uL (0.8-4.8); LYMPHOCYTES % (AUTO) 9.4 % (20.0-44.0); MEAN CORPUSCULAR HGB CONC 31 g/dl (31.0-36.0); MEAN CORPUSCULAR VOLUME 78 fL (80-96); MONOCYTES # (AUTO) 1.2 K/uL (0.1-1.30); MONOCYTES % (AUTO) 7.6 % (2.0-12.0); NEUTROPHILS # (AUTO) 12.6 K/uL (1.8-8.9); NEUTROPHILS % (AUTO) 80.9 % (43.0-81.0); PLATELET COUNT (AUTO) 372 K/uL (150-450); RED BLOOD CELL COUNT(AUTO) 3.77 MIL/uL (4.5-6.0); WHITE BLOOD COUNT (AUTO) 15.6 K/uL (4.3-11.0)
[2022-01-05 04:39] LABS: ALBUMIN 1.7 g/dL (3.4-5.0); BILIRUBIN,DIRECT 0.2 mg/dL (0.0-0.2); BILIRUBIN,TOTAL 0.8 mg/dL (0.2-1.0); CALCIUM, SERUM 8.1 mg/dL (8.5-10.1); CREATININE 0.7 mg/dL (0.6-1.3); POTASSIUM 4.2 mmol/L (3.5-5.1); TOTAL PROTEIN, SERUM 6.9 g/dL (6.4-8.2)
--- NOTE | 2022-01-05 05:16 | NUR ---
end of shift resp note pt remains on high flow nasal canula 60l 60% hr and rr stable at this time. Addendum: 01/05/22 at 0517 by PEPE LANIER RT Amended: Links added.
--- NOTE | 2022-01-05 06:57 | NUR ---
RN NOTE PT AWAKE, SLEPT WELL AT NIGHT. NO CHANGES IN LOC NOTED. TOLERATED HIGH FLOW NC AT 60L 60%. NO SIGNS OF DISTRESS. DENIES PAIN AND SOB. SR ON TELE MONITOR, HR 84. REMAIN AFEBRILE. WILL ENDORSE TO NEXT SHIFT NURSE FOR JEROD,
[2022-01-05] MEDS: PANTOPRAZOLE 40 MG TABLET.DR PO SCH (08:30)
[2022-01-05] MEDS: LISINOPRIL (20MG) 20 MG TABLET PO SCH (08:31)
[2022-01-05] MEDS: AMLODIPINE BESYLATE 10 MG TABLET PO SCH (08:31)
[2022-01-05] MEDS: ENOXAPARIN SODIUM 40 MG/0.4 ML DISP.SYRIN SQ SCH (08:33)
[2022-01-05] MEDS: FLUCONAZOLE IN NS,PREMIX 400 MG in PREMIX 1 EA IV SCH ×2 (11:13)
[2022-01-05] MEDS: AZITHROMYCIN 500 MG in IV D5W 250 ML IV SCH (12:03)
[2022-01-05] MEDS: FLUCONAZOLE IN NS,PREMIX 200 MG in PREMIX 1 EA IV SCH ×2 (13:21)
[2022-01-05] MEDS: CEFTRIAXONE 2 G in IV D5W 100 ML IV SCH (13:27)
--- NOTE | 2022-01-05 17:23 | NUR ---
RN NOTE PT RESTING IN BED, AWAKE ALERT AND RESPONSIVE. CONTINUES ON HIGH FLOW NASAL CANULA @ 45L WITH 50% FIO2. O2 SAT OF 95%. PT NOT IN RESPIRATORY DISTRESS. CINDY MIDLINE IN PLACE AND PATENT. PT IS SR ON TELE MONITOR. NO COMPLAINTS OF PAIN. DUE MEDICATIONS TAKEN, MORNING AND EVENING CARE RENDERED. SAFETY MEASURES MAINTAINED. WILL CONTINUE TO MONITOR.
--- NOTE | 2022-01-05 19:10 | NUR ---
RN OPENING NOTES RECEIVED PATIENT ON BED AWAKE, A/O X 4, ON HI-FLOW @ 45L AND FIO2-55% SATING AT 95%. RESPIRATORY EVEN AND UNLABORED NO SOB NOTED. DENIES PAIN, NO S/S OF DISTRESS NOTED. PATIENT HAS CINDY MID LINE # 18, FLUSHED WITH NS, NO S/S OF INFILTRATION NOTED AT SITE. SAFETY MEASURE PROVIDED. BED IN LOWEST POSITION, LOCKED. CONTINUE TO MONITOR.
[2022-01-05] MEDS: ACETAMINOPHEN 325 MG TABLET PO PRN (20:14)
--- NOTE | 2022-01-05 20:15 | NUR ---
RN NOTES PATIENT NOTED WITH TEMP- 100.2 F DEGREES, COOLING MEASURE PROVIDED, ACETAMINOPHEN 650MG PO GIVEN PER MD'S ORDERED. CONTINUE TO MONITOR.
--- NOTE | 2022-01-05 21:00 | NUR ---
RN NOTES TEMPERATURE RECHECKED, OBTAINED 99.0 F DEGREES, CONTINUE WITH COOLING MEASURES, CONTINUE TO MONITOR.
[2022-01-05] MEDS: ATORVASTATIN 10 MG TABLET PO SCH (21:05)
[2022-01-06] VITALS (24 sets, daily range): BP systolic 115–168; BP diastolic 47–115
[2022-01-06 04:29] LABS: BASOPHILS % (AUTO) 0.2 % (0.0-2.0); EOSINOPHILS % (AUTO) 2.6 % (0.0-6.0); HEMATOCRIT 30 % (39-51); HEMOGLOBIN 9.4 g/dL (13.5-17.5); LYMPHOCYTES # (AUTO) 1.7 K/uL (0.8-4.8); LYMPHOCYTES % (AUTO) 10.8 % (20.0-44.0); MEAN CORPUSCULAR HGB CONC 32 g/dl (31.0-36.0); MEAN CORPUSCULAR VOLUME 78 fL (80-96); MONOCYTES # (AUTO) 1.2 K/uL (0.1-1.30); MONOCYTES % (AUTO) 7.5 % (2.0-12.0); NEUTROPHILS # (AUTO) 12.2 K/uL (1.8-8.9); NEUTROPHILS % (AUTO) 78.9 % (43.0-81.0); PLATELET COUNT (AUTO) 416 K/uL (150-450); RED BLOOD CELL COUNT(AUTO) 3.84 MIL/uL (4.5-6.0); WHITE BLOOD COUNT (AUTO) 15.5 K/uL (4.3-11.0)
[2022-01-06] MEDS: IV NS 0.9% 250 ML IV PRN (04:36)
[2022-01-06 05:10] LABS: ALBUMIN 1.8 g/dL (3.4-5.0); BILIRUBIN,DIRECT 0.3 mg/dL (0.0-0.2); BILIRUBIN,TOTAL 0.8 mg/dL (0.2-1.0); CALCIUM, SERUM 8.2 mg/dL (8.5-10.1); CREATININE 0.8 mg/dL (0.6-1.3); MAGNESIUM 2.4 mg/dL (1.8-2.4); PHOSPHORUS 3.1 mg/dL (2.5-4.9); POTASSIUM 3.9 mmol/L (3.5-5.1); TOTAL PROTEIN, SERUM 7.1 g/dL (6.4-8.2)
--- NOTE | 2022-01-06 05:40 | NUR ---
FIO2 INCREASED TO 70% DUE TO LOW O2 SAT. RN NOTIFIED.
--- NOTE | 2022-01-06 07:06 | NUR ---
RN NOTES PATIENT REMAIN STABLE THROUGH OUT THE SHIFT. RESPIRATORY EVEN AND UNLABORED NO SOB NOTED, REMAIN AFEBRILE. DENIES PAIN, NO S/S OF DISTRESS NOTED. ALL DUE MEDS GIVEN ORDERED. SAFETY MEASURE PROVIDED. BED IN LOWEST POSITION, LOCKED. REPORT GIVEN TO MORNING SHIFT NURSE.
--- NOTE | 2022-01-06 07:30 | NUR ---
RN NOTES PT FOUND HIGH FOWLERS DISPLAYING NO S/S OF DISTRESS, PT ENDORSES NO PAIN AND IS BREATHING EVEN AND UNLABORED ON HIGH SIMONE NC 50L 70%. PT IS A&OX4, NSR ON THE MONITOR. PT GIVEN BREAKFAST AND ABLE TO FEED SELF. L UA ML IS PATIENT AND INTACT. RN WILL CONTINUE CARE PLAN AND ANTICIPATE NEEDS. SAFETY MEASURES IN PLACE, BED LOCKED AND IN LOWEST POSITION, SIDE RAILS UPX2, CALL LIGHT WITHIN REACH, PT INSTRUCTED TO CALL FOR ASSISTANCE.
[2022-01-06] MEDS: PANTOPRAZOLE 40 MG TABLET.DR PO SCH (07:42)
[2022-01-06] MEDS: LISINOPRIL (20MG) 20 MG TABLET PO SCH (08:47)
[2022-01-06] MEDS: ENOXAPARIN SODIUM 40 MG/0.4 ML DISP.SYRIN SQ SCH (08:47)
[2022-01-06] MEDS: AMLODIPINE BESYLATE 10 MG TABLET PO SCH (08:47)
[2022-01-06] MEDS: FLUCONAZOLE IN NS,PREMIX 400 MG in PREMIX 1 EA IV SCH ×2 (10:45)
[2022-01-06] MEDS: AZITHROMYCIN 500 MG in IV D5W 250 ML IV SCH (12:01)
[2022-01-06] MEDS: CEFTRIAXONE 2 G in IV D5W 100 ML IV SCH (13:07)
--- NOTE | 2022-01-06 19:04 | NUR ---
RN NOTES PT FOUND HIGH FOWLERS DISPLAYING NO S/S OF DISTRESS, PT ENDORSES NO PAIN AND IS BREATHING EVEN AND UNLABORED ON HIGH SIMONE NC 40L 45%. PT IS A&OX4, NSR ON THE MONITOR. PT GIVEN BREAKFAST AND ABLE TO FEED SELF. L UA ML IS PATIENT AND INTACT. SBAR AND REPORT GIVEN TO HAND CIGAR MAKING SUPERVISOR RN, ALL QUESTIONS ANSWERED. SAFETY MEASURES IN PLACE, BED LOCKED AND IN LOWEST POSITION, SIDE RAILS UPX2, CALL LIGHT WITHIN REACH, PT INSTRUCTED TO CALL FOR ASSISTANCE. PT ENDORSED IN STABLE CONDITION FOR JEROD.
--- NOTE | 2022-01-06 19:10 | NUR ---
RN OPENING NOTES RECEIVED PATIENT ON BED AWAKE, A/O X 4, ON HI-FLOW @ 40L AND FIO2-45% SATING AT 95%. RESPIRATORY EVEN AND UNLABORED NO SOB NOTED. DENIES PAIN, NO S/S OF DISTRESS NOTED. PATIENT HAS CINDY MID LINE # 18, FLUSHED WITH NS, NO S/S OF INFILTRATION NOTED AT SITE. SAFETY MEASURE PROVIDED. BED IN LOWEST POSITION, LOCKED. CONTINUE TO MONITOR.
[2022-01-06] MEDS: ACETAMINOPHEN 325 MG TABLET PO PRN (20:13)
--- NOTE | 2022-01-06 20:14 | NUR ---
RN NOTES PATIENT NOTED WITH TEMP- 99.9 F DEGREES, COOLING MEASURE PROVIDED, ACETAMINOPHEN 650MG PO GIVEN PER MD'S ORDERED. CONTINUE TO MONITOR.
--- NOTE | 2022-01-06 21:14 | NUR ---
RN NOTES TEMPERATURE RECHECKED, OBTAINED 99.0 F DEGREES, CONTINUE WITH COOLING MEASURES, CONTINUE TO MONITOR.
[2022-01-06] MEDS: ATORVASTATIN 10 MG TABLET PO SCH (21:22)
[2022-01-07] VITALS (14 sets, daily range): BP systolic 99–133; BP diastolic 52–71
[2022-01-07] MEDS: IV NS 0.9% 250 ML IV PRN (04:50)
[2022-01-07 05:23] LABS: BASOPHILS % (AUTO) 0.1 % (0.0-2.0); EOSINOPHILS % (AUTO) 2.7 % (0.0-6.0); HEMATOCRIT 30 % (39-51); HEMOGLOBIN 9.1 g/dL (13.5-17.5); LYMPHOCYTES # (AUTO) 1.5 K/uL (0.8-4.8); LYMPHOCYTES % (AUTO) 10.5 % (20.0-44.0); MEAN CORPUSCULAR HGB CONC 31 g/dl (31.0-36.0); MEAN CORPUSCULAR VOLUME 78 fL (80-96); MONOCYTES # (AUTO) 1.1 K/uL (0.1-1.30); MONOCYTES % (AUTO) 7.6 % (2.0-12.0); NEUTROPHILS # (AUTO) 11.5 K/uL (1.8-8.9); NEUTROPHILS % (AUTO) 79.1 % (43.0-81.0); PLATELET COUNT (AUTO) 435 K/uL (150-450); WHITE BLOOD COUNT (AUTO) 14.5 K/uL (4.3-11.0)
[2022-01-07 05:37] LABS: CALCIUM, SERUM 8.3 mg/dL (8.5-10.1); CREATININE 0.8 mg/dL (0.6-1.3); POTASSIUM 3.9 mmol/L (3.5-5.1)
[2022-01-07 05:42] LABS: ALBUMIN 1.8 g/dL (3.4-5.0); BILIRUBIN,DIRECT 0.2 mg/dL (0.0-0.2); BILIRUBIN,TOTAL 0.6 mg/dL (0.2-1.0); TOTAL PROTEIN, SERUM 7.1 g/dL (6.4-8.2)
--- NOTE | 2022-01-07 07:45 | NUR ---
ICU/RN PT IS RESTING .HI-FLOW O2 D/C PLACED ON 6L N/C SAT O2-100%.V/S STABLE.AFEBRILE.NO PAIN REPORTED AT THIS TIME.LABS REVIEW. AWARE.ABG ORDERED.
--- NOTE | 2022-01-07 07:45 | NUR ---
placed on 6lpm n/c. tolerating well at this time.
[2022-01-07] MEDS: ENOXAPARIN SODIUM 40 MG/0.4 ML DISP.SYRIN SQ SCH (08:21)
[2022-01-07] MEDS: LISINOPRIL (20MG) 20 MG TABLET PO SCH (08:21)
[2022-01-07] MEDS: PANTOPRAZOLE 40 MG TABLET.DR PO SCH (08:21)
[2022-01-07] MEDS: AMLODIPINE BESYLATE 10 MG TABLET PO SCH (08:22)
[2022-01-07 09:00] LABS: ABG OXYGEN SATURATION 96.4 % (92.0-98.5); ABG PCO2 43.6 mmHg (35.0-45.0); ABG PH 7.436 (7.350-7.450); ABG PO2 88.8 mmHg (75.0-100.0); AaDO2 146.3 mmHg; COHb 0.3 % (0.5-1.5); MetHb 0.2 % (0.0-1.5); O2Hb 95.9 % (94.0-97.0); SITE, ABG Right Radial; VENT MODE, BG N/C
--- NOTE | 2022-01-07 09:00 | NUR ---
ICU/RN DUE MEDS ARE GIVEN ORDERED.
--- NOTE | 2022-01-07 10:00 | NUR ---
ICU/RN PT TRANSFER TO TELE UNIT .V/S STABLE,AFEBRILE NO PAIN REPORTED AT THIS TIME ON 6L N/C ,SAT O2-99%.REPORT GIVEN TO LACEY/MIRIAM.
[2022-01-07] MEDS: AZITHROMYCIN 500 MG in IV D5W 250 ML IV SCH (11:01)
[2022-01-07] MEDS: CEFTRIAXONE 2 G in IV D5W 100 ML IV SCH (12:02)
--- NOTE | 2022-01-07 18:43 | NUR ---
RN CLOSING NOTE PT IS RESTING IN BED A/O X 4. PT IS ON 6L VIA NC SATING AT 96%. TELE MONITOR READS SR. IV ACCESS NOTED AT CINDY MIDLINE. NO FLUIDS OR DRIPS RUNNING. ALL SAFETY MEASURES IN PLACE. WILL ENDORSE TO HIGH SCHOOL CHEMISTRY TEACHER RN FOR JEROD.
--- NOTE | 2022-01-07 19:30 | NUR ---
GLASS CARRIER OPENING NOTE RECEIVED PT IN BED, AWAKE. A/O X 4. VERBALLY RESPONSIVE. CURRENTLY ON O2 6L VIA NC, TOLERATING WELL. NO S/SX OF ACUTE DISTRESS NOTED AT THIS TIME. NO SOB, NO PAIN. ON TELEMONITOR SHOWING SR, SATING AT 96%. IV ACCESS NOTED AT CINDY MIDLINE. NO FLUIDS OR DRIPS RUNNING. ALL SAFETY MEASURES IN PLACE: BED IN LOWEST POSITION, LOCKED. BED ALARM ON. CALL LIGHT WITHIN REACH. WILL CONTINUE TO MONITOR.
[2022-01-07] MEDS: ATORVASTATIN 10 MG TABLET PO SCH (21:04)
[2022-01-07] MEDS: ACETAMINOPHEN 325 MG TABLET PO PRN (23:27)
[2022-01-08] VITALS: BP 126/62
[2022-01-08 04:00] VITALS: BP 126/71
[2022-01-08 06:36] LABS: BASOPHILS % (AUTO) 0.2 % (0.0-2.0); EOSINOPHILS % (AUTO) 3.3 % (0.0-6.0); HEMATOCRIT 31 % (39-51); HEMOGLOBIN 9.9 g/dL (13.5-17.5); LYMPHOCYTES # (AUTO) 1.5 K/uL (0.8-4.8); LYMPHOCYTES % (AUTO) 11.8 % (20.0-44.0); MEAN CORPUSCULAR HGB CONC 32 g/dl (31.0-36.0); MEAN CORPUSCULAR VOLUME 78 fL (80-96); MONOCYTES # (AUTO) 0.9 K/uL (0.1-1.30); MONOCYTES % (AUTO) 7.4 % (2.0-12.0); NEUTROPHILS # (AUTO) 9.5 K/uL (1.8-8.9); NEUTROPHILS % (AUTO) 77.3 % (43.0-81.0); PLATELET COUNT (AUTO) 461 K/uL (150-450); RED BLOOD CELL COUNT(AUTO) 4.02 MIL/uL (4.5-6.0); WHITE BLOOD COUNT (AUTO) 12.3 K/uL (4.3-11.0)
[2022-01-08 06:37] LABS: CALCIUM, SERUM 8.8 mg/dL (8.5-10.1); CREATININE 0.8 mg/dL (0.6-1.3); POTASSIUM 4.2 mmol/L (3.5-5.1)
[2022-01-08 06:55] LABS: BILIRUBIN,DIRECT 0.2 mg/dL (0.0-0.2); BILIRUBIN,TOTAL 0.5 mg/dL (0.2-1.0); TOTAL PROTEIN, SERUM 7.7 g/dL (6.4-8.2)
--- NOTE | 2022-01-08 07:11 | NUR ---
WAISTBAND SETTER CLOSING NOTE PT REMAINED STABLE THROUGHOUT THE NIGHT. PT IN BED, A/O X 4. VERBALLY RESPONSIVE. ON O2 6L VIA NC, TOLERATING WELL. NO S/SX OF ACUTE DISTRESS NOTED. ON TELEMONITOR SHOWING SR, HR 80s. O2 SAT IS 96%. IV ACCESS AT CINDY MIDLINE. NO FLUIDS OR DRIPS RUNNING. ALL DUE MEDS GIVEN. ALL NEEDS ATTENDED TO SAFETY MEASURES IMPLEMENTED: BED IN LOWEST POSITION, LOCKED. BED ALARM ON. CALL LIGHT WITHIN REACH. WILL ENDORSE TO AM SHIFT NURSE FOR JEROD.
--- NOTE | 2022-01-08 07:28 | NUR ---
RN OPENING NOTE RECEIVED PT IN BED, AWAKE. A/O X 4. VERBALLY RESPONSIVE. CURRENTLY ON O2 6L VIA NC, TOLERATING WELL. NO S/SX OF ACUTE DISTRESS NOTED AT THIS TIME. NO SOB, NO PAIN. ON TELEMONITOR SHOWING SR, SATING AT 96%. IV ACCESS NOTED AT CINDY MIDLINE. ALL SAFETY MEASURES IN PLACE: BED IN LOWEST POSITION, LOCKED. BED ALARM ON. CALL LIGHT WITHIN REACH.
[2022-01-08 08:00] VITALS: BP 120/62
[2022-01-08] MEDS: AMLODIPINE BESYLATE 10 MG TABLET PO SCH (08:48)
[2022-01-08] MEDS: PANTOPRAZOLE 40 MG TABLET.DR PO SCH (08:48)
[2022-01-08] MEDS: ENOXAPARIN SODIUM 40 MG/0.4 ML DISP.SYRIN SQ SCH (08:49)
[2022-01-08] MEDS: LISINOPRIL (20MG) 20 MG TABLET PO SCH (08:49)
[2022-01-08 12:00] VITALS: BP 117/61
[2022-01-08] MEDS: CEFTRIAXONE 2 G in IV D5W 100 ML IV SCH (12:01)
[2022-01-08 16:00] VITALS: BP 128/66
--- NOTE | 2022-01-08 18:44 | NUR ---
TRADE SHOW MANAGER CLOSING NOTE PT REMAINED STABLE THROUGHOUT THE NIGHT. PT IN BED, A/O X 4. VERBALLY RESPONSIVE. ON O2 6L VIA NC, TOLERATING WELL. NO S/SX OF ACUTE DISTRESS NOTED. ON TELEMONITOR SHOWING SR, HR 80s. IV ACCESS AT CIDNY MIDLINE. NO FLUIDS OR DRIPS RUNNING. ALL DUE MEDS GIVEN. ALL NEEDS ATTENDED TO SAFETY MEASURES IMPLEMENTED: BED IN LOWEST POSITION, LOCKED. BED ALARM ON. CALL LIGHT WITHIN REACH. WILL ENDORSE TO OPERATION SPECIALIST NURSE FOR JEROD.
[2022-01-08 20:00] VITALS: BP 109/60
[2022-01-08] MEDS: ATORVASTATIN 10 MG TABLET PO SCH (21:29)
--- NOTE | 2022-01-08 23:31 | NUR ---
RN OPENING NOTES RECEIVED PATIENT ON BED AWAKE, A/O X 4, ON 6 LITERS OF O2 VIA NC SATING PTS ON TELE SR AT 79 SATING 100% RESPIRATORY EVEN AND UNLABORED NO SOB NOTED. DENIES PAIN, NO S/S OF DISTRESS NOTED. PATIENT HAS CINDY MID LINE # 18, FLUSHED WITH NS, NO S/S OF INFILTRATION NOTED AT SITE. SAFETY MEASURE PROVIDED. BED IN LOWEST POSITION, LOCKED. CONTINUE TO MONITOR.
[2022-01-09] VITALS: BP 117/66
[2022-01-09 04:00] VITALS: BP 132/70
[2022-01-09 06:39] LABS: BASOPHILS % (AUTO) 0.4 % (0.0-2.0); EOSINOPHILS % (AUTO) 2.9 % (0.0-6.0); HEMATOCRIT 32 % (39-51); HEMOGLOBIN 9.7 g/dL (13.5-17.5); LYMPHOCYTES # (AUTO) 1.9 K/uL (0.8-4.8); LYMPHOCYTES % (AUTO) 13.9 % (20.0-44.0); MEAN CORPUSCULAR HGB CONC 31 g/dl (31.0-36.0); MEAN CORPUSCULAR VOLUME 79 fL (80-96); MONOCYTES % (AUTO) 7.6 % (2.0-12.0); NEUTROPHILS # (AUTO) 10.3 K/uL (1.8-8.9); NEUTROPHILS % (AUTO) 75.2 % (43.0-81.0); PLATELET COUNT (AUTO) 444 K/uL (150-450); WHITE BLOOD COUNT (AUTO) 13.7 K/uL (4.3-11.0)
[2022-01-09 06:48] LABS: BILIRUBIN,URINE NEGATIVE (NEGATIVE); COLOR,URINE YELLOW (YELLOW); LEUKOCYTE ESTERASE ,URINE NEGATIVE (NEGATIVE); NITRITE, URINE NEGATIVE (NEGATIVE); PROTEIN,URINE NEGATIVE (NEGATIVE); UGLUCOSE NEGATIVE (NEGATIVE); UROBILINOGEN,URINE 0.2 EU/dL (0.2)
--- NOTE | 2022-01-09 06:52 | NUR ---
ms rn notes Pts in bed awake a/ox4 vitals stable no norma the whole shift pts comfortable in bed,will endorse to rn day shift for continuity of care.
[2022-01-09 07:09] LABS: CALCIUM, SERUM 8.6 mg/dL (8.5-10.1); CREATININE 0.8 mg/dL (0.6-1.3); POTASSIUM 5.3 mmol/L (3.5-5.1)
[2022-01-09 07:12] LABS: ALBUMIN 1.9 g/dL (3.4-5.0); BILIRUBIN,TOTAL 0.7 mg/dL (0.2-1.0); TOTAL PROTEIN, SERUM 7.9 g/dL (6.4-8.2)
[2022-01-09 07:49] LABS: BACTERIA,URINE Rare /HPF (None Seen); RBC,URINE 0-2 /HPF (0-2); SQUAMOUS EPITHELIAL CELL,UR Rare /HPF (None Seen); WBC,URINE 0-2 /HPF (0-3)
--- NOTE | 2022-01-09 07:52 | NUR ---
PATIENT ON BUBBLE HUMIDIFIER 6 L . SAT 95% WITHOUT SOB. Addendum: 01/09/22 at 0754 by JERRELL CANO RT Amended: Links added.
[2022-01-09 08:00] VITALS: BP 112/57
--- NOTE | 2022-01-09 08:06 | NUR ---
CHIEF JUVENILE PROBATION OFFICER NOTE PATIENT IN BED ,ALL NEEDS ATTENDED,PATIENT ,ALERT ORIENTED, ON 6L NC, NO SOB NOTED AT THIS TIME, ON SR 83 TELE MONITOR CINDY MID LINE IN PLACE AND FLUSHED WELL ,CALL LIGHT WITHIN REACH PLAN OF CARE DISCUSSED WITH PATIENT ,WILL CONT TO MONITOR
--- NOTE | 2022-01-09 08:50 | NUR ---
PRINCIPAL ARCHITECT NOTE REPORTED TO DR RODRIGUEZ THAT K 5.3 AND AST 105 ALT 162 ORDERED KAYEXALATE 30 MG PO ALSO AWARE THAT PATIENT STILL HAS COUGHING ,NO NEW ORDER ABOUT THIS AT THIS TIME ,WILL MONITOR
[2022-01-09] MEDS: ENOXAPARIN SODIUM 40 MG/0.4 ML DISP.SYRIN SQ SCH (08:53)
[2022-01-09] MEDS: AMLODIPINE BESYLATE 10 MG TABLET PO SCH (08:55)
[2022-01-09] MEDS: LISINOPRIL (20MG) 20 MG TABLET PO SCH (08:55)
[2022-01-09] MEDS ORDERED: SODIUM POLYSTYRENE SULFONATE 15 G/60 ML BOTTLE PO ONE (09:00)
[2022-01-09] MEDS: PANTOPRAZOLE 40 MG TABLET.DR PO SCH (09:04)
--- NOTE | 2022-01-09 12:00 | NUR ---
SUPERVISOR HARDBOARD NOTE ABLE TO EAT LUNCH SELF NOT IN DISTRESS
[2022-01-09] MEDS: CEFTRIAXONE 2 G in IV D5W 100 ML IV SCH (12:54)
--- NOTE | 2022-01-09 15:00 | NUR ---
MS RN NOTE ASSISTED TO BR ABLE TO MAKE BM KEEP CLEAN DRY
[2022-01-09 16:00] VITALS: BP_SYST 109; BP_SYST 118; BP_DIAS 58; BP_DIAS 69
--- NOTE | 2022-01-09 17:29 | NUR ---
ms rn note all needs attended,family at bedside ,not in distress
--- NOTE | 2022-01-09 18:57 | NUR ---
MS RN NOTE PATIENT IN BED, AWAKE ALERT ORIENTED , ABLE TO EAT DINNER SELF , ALL NEEDS ATTENDED ON ON 6L NC, NO SOB NOTED WITH ACCESSIONAL COUGH AT TIMES, BED IN LOWEST AND LOCKED POSITION , CALL LIGHT WITHIN REACH
[2022-01-09 20:00] VITALS: BP 118/58
--- NOTE | 2022-01-09 21:52 | NUR ---
MS RN Opening Note Pt received in bed, awake, A&O x4, calm, cooperative. Noted to be on 6L NC with current O2sat 96%; pt shows no s/s of resp distress, no SOB or cough, non-labored and equal breathing; appears comfortable. VSS and will monitor as needed. CINDY midline intact and patent; flushes easily with no resistance; currently has no fluids/meds running through it. Bed in lowest position, call light within reach, side rails up x2. Will continue to monitor throughout the night.
[2022-01-09] MEDS: ATORVASTATIN 10 MG TABLET PO SCH (22:38)
[2022-01-10 04:00] VITALS: BP 124/68
--- NOTE | 2022-01-10 06:17 | NUR ---
MS RN Closing Note Pt remains in bed, A&O x4, slept well during the night but easily arousable. Continues to be on 6L NC with O2sat ranging from 96%-97% throughout the night; pt showed no s/s of resp distress, no SOB or cough, non-labored and equal breathing. VSS during the night; pt's temperature went down from 99.2 at 2000 to 97.7 at 0400 by using cooling measures (removing blankets, applying ice packs); pt showed no s/s of SIRS. CINDY midline intact and patent; flushes easily with no resistance. All due meds administered during the night. Bed in lowest position, call light within reach, side rails up x2. Will endorse to dayshift nurse to continue care.
--- NOTE | 2022-01-10 07:10 | NUR ---
RN Opening Note Recieved patient from nightshift RN. Patient remains in bed, alert and oriented x4. recieving oxygen at 6 Liters per minute Nasal [place], no signs or symptoms of respiratory distress or shortness of breath noted. No cough, non-labored and equal breathing. Left upper arm midline intact and patent; flushes easily with no resistance. Bed in lowest position, call light within reach, side rails up x2. Will continue plan of care and anticipate needs.
[2022-01-10] MEDS ORDERED: SODIUM POLYSTYRENE SULFONATE 15 G/60 ML BOTTLE PO ONE (07:30)
[2022-01-10 08:00] VITALS: BP 122/68
[2022-01-10 08:27] LABS: BILIRUBIN,DIRECT 0.2 mg/dL (0.0-0.2); BILIRUBIN,TOTAL 0.5 mg/dL (0.2-1.0); TOTAL PROTEIN, SERUM 8.1 g/dL (6.4-8.2)
[2022-01-10 08:33] LABS: ALBUMIN 2.1 g/dL (3.4-5.0)
[2022-01-10] MEDS: PANTOPRAZOLE 40 MG TABLET.DR PO SCH (08:35)
[2022-01-10] MEDS: AMLODIPINE BESYLATE 10 MG TABLET PO SCH (08:36)
[2022-01-10] MEDS: LISINOPRIL (20MG) 20 MG TABLET PO SCH (08:36)
[2022-01-10] MEDS: ENOXAPARIN SODIUM 40 MG/0.4 ML DISP.SYRIN SQ SCH (08:39)
[2022-01-10 12:00] VITALS: BP 122/68
[2022-01-10 16:00] VITALS: BP 114/58
--- NOTE | 2022-01-10 18:55 | NUR ---
RN Closing Note Patient remains in bed, alert and oriented x4. recieving oxygen at 6 Liters per minute Nasal [place], no signs or symptoms of respiratory distress or shortness of breath noted. No cough, non-labored and equal breathing. Left upper arm midline intact and patent; flushes easily with no resistance. All meds given.Bed in lowest position, call light within reach, side rails up x2. Will endorse to nightshift RN for continuation of care.
--- NOTE | 2022-01-10 19:40 | NUR ---
RN OPENING NOTES: RECEIVED PT IN BED SITTING POSITION, AWAKE, ALERT/ORIENTED X4 AND VERBALLY RESPONSIVE. ON O2 AT 6L/MIN VIA N/C AND PT TOLERATED WELL. BREATHING EVEN AND UNLABORED. IV ACCESS ON CINDY MIDLINE INTACT AND PATENT. NO S/S OF INFILTRATIONS. NO C/O PAIN OR DISCOMFORT. NO ACUTE DISTRESS. ALL SAFETY MEASURES IN PLACE. BED IN LOWEST POSITION AND LOCKED. SIDE RAILS UP X2, BED ALARM ON. PLACE CALL LIGHT WITH IN REACH. WILL CONTINUE TO MONITOR
[2022-01-10 20:00] VITALS: BP 115/67
[2022-01-10] MEDS: ATORVASTATIN 10 MG TABLET PO SCH (21:45)
[2022-01-11 04:00] VITALS: BP 111/64
--- NOTE | 2022-01-11 06:44 | NUR ---
RN CLOSING NOTES: PT IN BED SLEEPING BUT EASILY AROUSABLE, AWAKE, ALERT/ORIENTED X4 AND VERBALLY RESPONSIVE. ON O2 AT 6L/MIN VIA N/C AND PT TOLERATED WELL. O2 SAT 98%. BREATHING EVEN AND UNLABORED. IV ACCESS ON CINDY MIDLINE INTACT AND PATENT. NO S/S OF INFILTRATIONS. NO C/O PAIN OR DISCOMFORT. NO ACUTE DISTRESS. ALL DUE MEDS GIVEN PER ORDERED. ALL SAFETY MEASURES IN PLACE. BED IN LOWEST POSITION AND LOCKED. SIDE RAILS UP X2, BED ALARM ON. PLACE CALL LIGHT WITH IN REACH. WILL ENDORSE TO MORNING SHIFT NURSE
[2022-01-11 07:00] LABS: ALBUMIN 2.1 g/dL (3.4-5.0); BILIRUBIN,DIRECT 0.2 mg/dL (0.0-0.2); BILIRUBIN,TOTAL 0.5 mg/dL (0.2-1.0); CALCIUM, SERUM 8.6 mg/dL (8.5-10.1); CREATININE 0.8 mg/dL (0.6-1.3); MAGNESIUM 2.5 mg/dL (1.8-2.4); PHOSPHORUS 3.8 mg/dL (2.5-4.9); POTASSIUM 4.5 mmol/L (3.5-5.1); TOTAL PROTEIN, SERUM 8.3 g/dL (6.4-8.2)
[2022-01-11 07:01] LABS: BASOPHILS % (AUTO) 0.4 % (0.0-2.0); HEMATOCRIT 32 % (39-51); HEMOGLOBIN 9.8 g/dL (13.5-17.5); LYMPHOCYTES # (AUTO) 2.2 K/uL (0.8-4.8); LYMPHOCYTES % (AUTO) 18.4 % (20.0-44.0); MEAN CORPUSCULAR HGB CONC 31 g/dl (31.0-36.0); MEAN CORPUSCULAR VOLUME 79 fL (80-96); MONOCYTES % (AUTO) 7.9 % (2.0-12.0); NEUTROPHILS # (AUTO) 8.5 K/uL (1.8-8.9); NEUTROPHILS % (AUTO) 70.3 % (43.0-81.0); PLATELET COUNT (AUTO) 477 K/uL (150-450); RED BLOOD CELL COUNT(AUTO) 4.03 MIL/uL (4.5-6.0); WHITE BLOOD COUNT (AUTO) 12.1 K/uL (4.3-11.0)
[2022-01-11] MEDS: PANTOPRAZOLE 40 MG TABLET.DR PO SCH (08:05)
[2022-01-11] MEDS: AMLODIPINE BESYLATE 10 MG TABLET PO SCH (08:06)
[2022-01-11] MEDS: ENOXAPARIN SODIUM 40 MG/0.4 ML DISP.SYRIN SQ SCH (08:06)
[2022-01-11] MEDS: LISINOPRIL (20MG) 20 MG TABLET PO SCH (08:07)
[2022-01-11 12:00] VITALS: BP 105/58
--- NOTE | 2022-01-11 17:35 | NUR ---
RN NOTES: PT RESTING IN BED, AWAKE, ALERT/ORIENTED X4.VERBALLY RESPONSIVE. ON O2 AT 6L VIA N/C TOLERATING WELL. O2 SAT 95%. BREATHING EVEN AND UNLABORED. IV ACCESS ON CINDY MIDLINE INTACT AND PATENT. NO C/O PAIN OR DISCOMFORT. ALL DUE MEDS GIVEN. ALL SAFETY MEASURES IN PLACE. AM/PM CARE DONE.
--- NOTE | 2022-01-11 19:30 | NUR ---
MS RN OPENING NOTE RECEIVED PT IN BED, AWAKE, ALERT/ORIENTED X4, VERBALLY RESPONSIVE. CURRENTLY ON O2 AT 6L VIA N/C, TOLERATING WELL. BREATHING IS EVEN AND UNLABORED, SHOWING NO S/SX OF ACUTE DISTRESS AT THIS TIME. IV ACCESS NOTED ON CINDY MIDLINE, INTACT AND PATENT. NO C/O PAIN OR DISCOMFORT. ALL SAFETY MEASURES IN PLACE: BED LOCKED, IN LOW POSITION. CALL LIGHT WITHIN REACH. WILL CONTINUE TO MONITOR FOR ANY CHANGES.
[2022-01-11 20:00] VITALS: BP 127/65
[2022-01-11] MEDS: ATORVASTATIN 10 MG TABLET PO SCH (21:29)
--- NOTE | 2022-01-12 00:30 | NUR ---
RN NOTE PT SLEEPING COMFORTABLY IN BED. TURNED AND REPOSITIONED. COMPLETE LINEN CHANGE DONE.
[2022-01-12 04:00] VITALS: BP 124/65
--- NOTE | 2022-01-12 05:42 | NUR ---
RN CLOSING NOTE NO SIGNIFICANT CHANGES THROUGHOUT THE NIGHT. PT REMAINED STABLE. ALL DUE MEDS GIVEN. ALL NEEDS ATTENDED TO. WILL ENDORSE TO AM SHIFT NURSE FOR JEROD.
[2022-01-12 06:31] LABS: BASOPHILS # (AUTO) 0.1 K/uL (0.0-0.2); BASOPHILS % (AUTO) 0.6 % (0.0-2.0); EOSINOPHILS % (AUTO) 2.8 % (0.0-6.0); HEMATOCRIT 32 % (39-51); HEMOGLOBIN 9.7 g/dL (13.5-17.5); LYMPHOCYTES # (AUTO) 2.1 K/uL (0.8-4.8); LYMPHOCYTES % (AUTO) 19.5 % (20.0-44.0); MEAN CORPUSCULAR HGB CONC 31 g/dl (31.0-36.0); MEAN CORPUSCULAR VOLUME 78 fL (80-96); MONOCYTES % (AUTO) 8.7 % (2.0-12.0); NEUTROPHILS # (AUTO) 7.5 K/uL (1.8-8.9); NEUTROPHILS % (AUTO) 68.4 % (43.0-81.0); PLATELET COUNT (AUTO) 481 K/uL (150-450); RED BLOOD CELL COUNT(AUTO) 4.02 MIL/uL (4.5-6.0)
[2022-01-12 07:11] LABS: ALBUMIN 2.1 g/dL (3.4-5.0); BILIRUBIN,DIRECT 0.2 mg/dL (0.0-0.2); BILIRUBIN,TOTAL 0.4 mg/dL (0.2-1.0); CALCIUM, SERUM 8.9 mg/dL (8.5-10.1); CREATININE 0.8 mg/dL (0.6-1.3); POTASSIUM 4.4 mmol/L (3.5-5.1); TOTAL PROTEIN, SERUM 8.1 g/dL (6.4-8.2)
--- NOTE | 2022-01-12 07:30 | NUR ---
RN OPENING NOTE PATIENT IS IN BED, AWAKE, ALERT, AND ORIENTED X 4. WITH OXYGEN VIA NASAL CANNULA AT 6L/MIN, WITH O2 SATURATION AT 96%. WITH LEFT UPPER ARM MIDLINE SALINE LOCK INTACT AND PATENT. DENIES PAIN, BREATHING UNLABORED.BED IS LOCKED IN LOWEST POSITION, 3 SIDE RAILS UP, CALL LIGHT WITHIN REACH. WILL CONTINUE TO MONITOR THROUGHOUT SHIFT.
[2022-01-12] MEDS: AMLODIPINE BESYLATE 10 MG TABLET PO SCH (08:16)
[2022-01-12] MEDS: PANTOPRAZOLE 40 MG TABLET.DR PO SCH (08:17)
[2022-01-12] MEDS: LISINOPRIL (20MG) 20 MG TABLET PO SCH (08:17)
[2022-01-12] MEDS: ENOXAPARIN SODIUM 40 MG/0.4 ML DISP.SYRIN SQ SCH (08:18)
[2022-01-12 12:07] VITALS: BP 101/57
--- NOTE | 2022-01-12 18:39 | NUR ---
RN CLOSING NOTE PATIENT IS RESTING COMFORTABLY IN BED AND REMAINED STABLE THROUGHOUT SHIFT. DENIES PAIN, BREATHING UNLABORED, AND NOT IN ANY FORM OF DISTRESS. TOLERATES OXYGEN VIA NASAL CANNULA AT 4L/MIN, WITH OXYGEN SATURATION AT 95%. LEFT UPPER ARM MIDLINE SALINE LOCK REMAINS INTACT AND PATENT. ALL HOSPITAL PRECAUTIONS IN PLACE. WILL ENDORSE TO HOTEL SUPERINTENDENT NURSE.
[2022-01-12 20:00] VITALS: BP 115/59
--- NOTE | 2022-01-12 20:00 | NUR ---
MS RN NOTE PT IN BED SITTING UP. A/O X 4. NO SOB, NO DISTRESS OR DISCOMFORT NOTED. DENIES PAIN. ON 4L O2, O2 SAT 98%. CINDY WITH MIDLINE I/P. SIDE RAILS UP X 3 AND CALL LIGHT WITHIN REACH. CONTINUE TO MONITOR HIM.
[2022-01-12] MEDS: ATORVASTATIN 10 MG TABLET PO SCH (21:28)
[2022-01-13 04:00] VITALS: BP 106/59
[2022-01-13 07:09] LABS: ALBUMIN 2.2 g/dL (3.4-5.0); BILIRUBIN,DIRECT 0.2 mg/dL (0.0-0.2); BILIRUBIN,TOTAL 0.4 mg/dL (0.2-1.0); TOTAL PROTEIN, SERUM 8.2 g/dL (6.4-8.2)
--- NOTE | 2022-01-13 07:30 | NUR ---
RN OPENING NOTE PATIENT IS IN BED ON HIGH BACK REST, AWAKE, ALERT AND ORIENTED X 4. WITH OXYGEN VIA NASAL CANNULA AT 4L/MIN, BREATHING UNLABORED, PRODUCTIVE COUGH NOTED, CLEAR BREATH SOUNDS. WITH LEFT UPPER ARM MIDLINE INTACT AND PATENT, NO SIGNS OF INFILTRATION NOTED. ALL HOSPITAL PRECAUTIONS IN PLACE. BED IS LOCKED IN LOWEST POSITION, 3 SIDE RAILS UP, CALL LIGHT WITHIN REACH.WILL CONTINUE TO MONITOR THROUGHOUT SHIFT.
[2022-01-13] MEDS: LISINOPRIL (20MG) 20 MG TABLET PO SCH (08:38)
[2022-01-13] MEDS: PANTOPRAZOLE 40 MG TABLET.DR PO SCH (08:38)
[2022-01-13] MEDS: AMLODIPINE BESYLATE 10 MG TABLET PO SCH (08:38)
[2022-01-13] MEDS: ENOXAPARIN SODIUM 40 MG/0.4 ML DISP.SYRIN SQ SCH (08:40)
[2022-01-13 12:10] VITALS: BP 103/54
--- NOTE | 2022-01-13 18:47 | NUR ---
RN CLOSING NOTE PATIENT IS RESTING COMFORTABLY IN BED AND REMAINED STABLE THROUGHOUT SHIFT. STILL ON O2 VIA NASAL CANNULA AT 2.5 L/MIN, SATTING AT 96%. DENIES PAIN, BREATHING UNLABORED, AND NOT IN ANY FORM OF DISTRESS. IV MIDLINE ON LEFT UPPER ARM REMAINS INTACT AND PATENT. BED IS LOCKED IN LOWEST POSITION, 3 SIDE RAILS UP, CALL LIGHT WITHIN REACH. WILL ENDORSE TO CHEMIST INTERNSHIP NURSE.
--- NOTE | 2022-01-13 19:30 | NUR ---
MS RN OPENING NOTE RECEIVED PATIENT IN BED, AWAKE, ALERT AND ORIENTED X 4. WITH OXYGEN VIA NASAL CANNULA AT 2.5L/MIN, BREATHING EVEN AND UNLABORED. WITH LEFT UPPER ARM MIDLINE INTACT AND PATENT, NO SIGNS OF INFILTRATION NOTED. ALL HOSPITAL PRECAUTIONS IN PLACE. SAFETY PRECAUTION IN PLACED. BED IS LOCKED AND IN LOWEST POSITION, 3 SIDE RAILS UP, CALL LIGHT WITHIN REACH. WILL CONTINUE TO MONITOR THROUGHOUT SHIFT.
[2022-01-13 20:00] VITALS: BP 108/55
[2022-01-13] MEDS: ATORVASTATIN 10 MG TABLET PO SCH (21:28)
[2022-01-14 04:00] VITALS: BP 108/74
[2022-01-14 06:31] LABS: BASOPHILS # (AUTO) 0.1 K/uL (0.0-0.2); BASOPHILS % (AUTO) 0.6 % (0.0-2.0); EOSINOPHILS % (AUTO) 3.3 % (0.0-6.0); HEMATOCRIT 31 % (39-51); HEMOGLOBIN 9.8 g/dL (13.5-17.5); LYMPHOCYTES # (AUTO) 2.3 K/uL (0.8-4.8); LYMPHOCYTES % (AUTO) 23.1 % (20.0-44.0); MEAN CORPUSCULAR HGB CONC 32 g/dl (31.0-36.0); MEAN CORPUSCULAR VOLUME 77 fL (80-96); MONOCYTES # (AUTO) 0.8 K/uL (0.1-1.30); MONOCYTES % (AUTO) 8.3 % (2.0-12.0); NEUTROPHILS # (AUTO) 6.5 K/uL (1.8-8.9); NEUTROPHILS % (AUTO) 64.7 % (43.0-81.0); PLATELET COUNT (AUTO) 473 K/uL (150-450); RED BLOOD CELL COUNT(AUTO) 4.01 MIL/uL (4.5-6.0); WHITE BLOOD COUNT (AUTO) 10.1 K/uL (4.3-11.0)
--- NOTE | 2022-01-14 06:35 | NUR ---
MS RN CLOSING NOTE PATIENT IN BED, AWAKE, ALERT AND ORIENTED X 3-4. WITH OXYGEN VIA NASAL CANNULA AT 2L/MIN, BREATHING EVEN AND UNLABORED. NOTED WITH PRODUCTIVE COUGH, WITH LEFT UPPER ARM MIDLINE INTACT AND PATENT, NO SIGNS OF INFILTRATION NOTED. ALL HOSPITAL PRECAUTIONS IN PLACE. ALL DUE MEDS GIVE, KEPT DRY AND CLEAN. BED LOCKED AND IN LOWEST POSITION, 3 SIDE RAILS UP, CALL LIGHT WITHIN REACH. WILL ENDORSE TO AM SHIFT NURSE.
[2022-01-14 07:15] LABS: ALBUMIN 2.3 g/dL (3.4-5.0); BILIRUBIN,DIRECT 0.2 mg/dL (0.0-0.2); BILIRUBIN,TOTAL 0.4 mg/dL (0.2-1.0); TOTAL PROTEIN, SERUM 8.1 g/dL (6.4-8.2)
[2022-01-14] MEDS: PANTOPRAZOLE 40 MG TABLET.DR PO SCH (07:48)
[2022-01-14 08:00] LABS: CALCIUM, SERUM 8.6 mg/dL (8.5-10.1); CREATININE 0.9 mg/dL (0.6-1.3); POTASSIUM 4.4 mmol/L (3.5-5.1)
[2022-01-14] MEDS ORDERED: LISI20TA30 PO (09:14)
[2022-01-14] MEDS ORDERED: ALBU2.5V13 NEB (09:14)
[2022-01-14] MEDS: ENOXAPARIN SODIUM 40 MG/0.4 ML DISP.SYRIN SQ SCH (09:17)
[2022-01-14] MEDS: LISINOPRIL (20MG) 20 MG TABLET PO SCH (09:18)
[2022-01-14] MEDS: AMLODIPINE BESYLATE 10 MG TABLET PO SCH (09:18)
[2022-01-14 12:00] VITALS: BP 108/55
--- NOTE | 2022-01-14 17:42 | NUR ---
MS RN NOTE UNABLE TO GIVE REPORT TO SNF , CALLED X4 STILL NOBODY ANSWER PHONE ALSO CALLED [facility] SHE AWARE OF IT
--- NOTE | 2022-01-14 18:38 | NUR ---
REVIEWED DISCHARGE INSTRUCTIONS WITH PT. PT VERBALIZED UNDERSTANDING. PT DISCHARGED VIA GURNEY WITH BELONGINGS, PRESCRIPTION AND INSTRUCTIONS. IV PREVIOUSLY DISCONTINUED. PT LEFT HOSPITAL TO [facility]. VS/ STABLE.
[2022-01-19 13:07] LABS: *ANCA ATYPICAL p-ANCA <1:20 titer (Neg:<1:20)
== END 2022-01-14 19:22 | DRG 871 ==
LOC: TELE1 16:58 → MEDSG1 12-28 09:00 → TELE1 12-28 17:54 → ICU 12-28 18:26 → TELE1 01-07 10:02 → MEDSG1 01-08 14:09 → TELE1 01-08 21:26 → MEDSG1 01-09 11:12
PROVIDERS: ATTEND Internal Medicine
PROC: 05HC33Z Insertion of Infusion Device into Left Basilic Vein, Percutaneous Approach (ICD-10-PCS; principal; 2021-12-31)
PROC: 0W993ZX Drainage of Right Pleural Cavity, Percutaneous Approach, Diagnostic (ICD-10-PCS; 2021-12-31)
PROC: 05HC33Z Insertion of Infusion Device into Left Basilic Vein, Percutaneous Approach (ICD-10-PCS; 2022-01-04)
DX: A41.9 Sepsis, unspecified organism (principal); J15.9 Unspecified bacterial pneumonia; J96.01 Acute respiratory failure with hypoxia; E87.1 Hypo-osmolality and hyponatremia; J90 Pleural effusion, not elsewhere classified; E05.00 Thyrotoxicosis with diffuse goiter without thyrotoxic crisis or storm; E78.5 Hyperlipidemia, unspecified; I10 Essential (primary) hypertension; Z20.822 Contact with and (suspected) exposure to COVID-19; I27.20 Pulmonary hypertension, unspecified; D50.9 Iron deficiency anemia, unspecified; D63.8 Anemia in other chronic diseases classified elsewhere; E83.39 Other disorders of phosphorus metabolism; E83.51 Hypocalcemia; E87.5 Hyperkalemia; E87.6 Hypokalemia; I35.1 Nonrheumatic aortic (valve) insufficiency; I70.0 Atherosclerosis of aorta; N28.1 Cyst of kidney, acquired; R73.9 Hyperglycemia, unspecified
CPT/HCPCS: 31720; 36410; 36415; 36600; 71045-TC; 71250-TC; 76536-TC; 76700-TC; 80048-TC; 80061-TC; 80076-TC; 80202-TC; 81001; 82533; 82803-TC; 83520; 83735-TC; 83880; 84100-TC; 84439-TC; 84443-TC; 84484-TC; 85025-TC; 85610-TC; 86225; 86235; 86256; 86431-TC; 86480; 86635; 86704; 86713; 86803; 87040-TC; 87070-TC; 87075-TC; 87081-TC; 87086-TC; 87102-TC; 87340; 87449; 87806; 89051-TC; 93307-TC; 94760-TC; 94762-TC; 94799-TC; 97116-TC; 97530-TC; A4216; G0378; J0456; J0696; J1450; J1650; J2185; J2270; J3370; J3490; J7030; J7050; J7060; U0003